=== PATIENT | male | born 1960 | race Caucasian/White ===

== ENCOUNTER 2016-12-06 20:03 | Emergency (ER) | payer OTHER ==
[2016-12-06] MEDS ORDERED: ASPIRIN 81 MG CHEW TABLET As Ordered ONE (20:22)
[2016-12-06 20:44] LABS: INR 0.92
[2016-12-06 20:59] LABS: MEAN CORPUSCULAR HEMOGLOBIN 33.3 pg (27.0-33.0); MEAN CORPUSCULAR HGB CONC 34.6 g/dl (32.0-36.5); MEAN CORPUSCULAR VOLUME 96.4 fl (80.0-96.0); RED CELL DISTRIBUTION WIDTH 12.1 % (11.5-14.5); WHITE BLOOD COUNT 7.4 K/mm3 (4.0-10.0)
[2016-12-06 22:39] LABS: ANION GAP 4 MEQ/L (8-16); BLOOD UREA NITROGEN 9 MG/DL (7-18); CALCIUM LEVEL 8.3 MG/DL (8.5-10.1); CARBON DIOXIDE LEVEL 34 MEQ/L (21-32); CHLORIDE LEVEL 104 MEQ/L (98-107); CREATININE FOR GFR 1.12 MG/DL (0.70-1.30); GLOMERULAR FILTRATION RATE > 60.0 (>56); GLUCOSE, FASTING 105 MG/DL (70-105); SODIUM LEVEL 142 MEQ/L (136-145)
--- NOTE | 2016-12-07 01:07 | REP ---
Clinical: Chest pain . Comparison: 02/10/2016 . Findings: The mediastinum and cardiac silhouette are stable and within normal limits for portable technique. The lung pickett are clear without acute consolidation, effusion, or pneumothorax. Skeletal structures are intact. Impression: Normal portable chest x-ray Signed by Jhonathan Fairchild MD 12/07/2016 12:58 A
--- NOTE | 2016-12-07 03:48 | EDDOCDS ---
Nurse's Notes [facility] Name: Blaise Velasquez Age: 56 yrs Sex: Male : 1960 Arrival Date: 12/06/2016 Time: 20:03 Bed Family 1 Private MD: Tiffanie Robb Diagnosis: Chest pain, unspecified;Patient's noncompliance with medical treatment and regimen Presentation: 12/06 20:05 Presenting complaint: EMS states: chest pain starting approx 19:30, acute onset. pt has mlc hx of 2 MA's. pt took 1 nitro at home with no relief. EMS gave 2x nitro with pain relief. ASA given by EMS. Aspirin was taken WHITE SOURER. Adult Sepsis Screening: The patient does not have new or worsening altered mentation. Patient's respiratory rate is less than 22. Systolic blood pressure is greater than 100. Patient has a qSOFA score of 0- Negative Sepsis Screen. Suicide/Homicide risk assessment- the patient denies having any suicidal and/or homicidal ideations and does not present with any other emotional, behavioral or mental health complaints. Status: Patient is not a student services director or dependent. Transition of care: patient was not received from another setting of care. Care prior to arrival: IV initiated. 20:05 Acuity: TOLU Level 2 mlc 20:05 Method Of Arrival: Ambulance mlc Triage Assessment: 20:31 General: Appears in no apparent distress, comfortable, slender, well developed, jp6 Behavior is anxious, appropriate for age, cooperative. Pain: Location: chest Pain currently is 1 out of 10 on a pain scale. Pt Declines HIV testing. The patient is triaged at the bedside. See Assessment in Nurses Notes section of ED record. Neurological: No deficits noted. Level of Consciousness is awake, alert, Oriented to person, place, time. EENT: No deficits noted. Cardiovascular: Capillary refill < 3 seconds is brisk Heart tones S1 S2 present Rhythm is sinus rhythm No ectopy. Chest pain is described as vague, quality is burning, is located in substernal area radiates jaw(s) episodes last > 5 minutes began 30 minutes prior to arrival. Respiratory: No deficits noted. Airway is patent Respiratory effort is even, unlabored, Respiratory pattern is regular, symmetrical, Breath sounds are clear bilaterally. GI: No deficits noted. : No deficits noted. Derm: Skin is dry, Skin is pale, Skin temperature is cool. Musculoskeletal: No deficits noted. Historical: - Allergies: PENICILLINS; - Home Meds: 1. albuterol sulfate 90 mcg/actuation Inhl aepb 1 puff every 4 hours 2. albuterol sulfate 2.5 mg /3 mL (0.083 %) Inhl nebu 3. aspirin 81 mg Oral tab 2 tabs once daily 4. atenolol 50 mg Oral tab 1 tab once daily 5. furosemide 40 mg Oral tab 1 tab once daily 6. nitroglycerin 0.4 mg SL subl 1 tab every 5 minutes 7. Plavix 75 mg Oral tab 1 tab once daily 8. Ranexa 500 mg oral Tb12 1 tab 2 times per day 9. lisinopril 2.5 mg Oral tab 1 tab once daily 10. omeprazole 40 mg Oral cpDR 1 cap once daily 11. Vitamin D3 5,000 unit oral tab 12. Onglyza 5 mg oral tab 1 tab once daily 13. metformin 1,000 mg Oral tr24 1 tab once daily 14. trazodone 100 mg Oral tab 1 tab as needed 15. Advair Diskus 250-50 mcg/dose Inhl dsdv 1 puff 2 times per day - PMHx: Asthma; CAD; COPD; GERD; Diabetes - NIDDM: controlled; Hypercholesterolemia; MA; - PSHx: Cardiac stents; - Social history: Smoking status: Patient uses tobacco products, current every day smoker. Patient/guardian denies using alcohol, street drugs, No barriers to communication noted, The patient speaks fluent Mongolian. - Family history: Not pertinent. - : The pt / caregiver states he / she is on anticoagulants: Plavix. Home medication list is obtained from the patient. - Exposure Risk Screening:: None identified. Screenin:35 Screening information is obtained from the patient. Fall risk: No risks identified. jp6 Assistance ADL's: requires no assistance with activities of daily living. Abuse/DV Screen: The patient / caregiver reports he/she is: not in a situation that causes fear, pain or injury. Nutritional screening: No deficits noted. Advance Directives: Currently, there is no health care proxy. There is no active DNR order. There is no living will. home support is adequate. Assessment: 20:35 General: see triage note for assessment. jp6 21:47 Reassessment: Patient appears in no apparent distress at this time. Patient states jp6 feeling better. Patient states symptoms have improved. General: Appears in no apparent distress, comfortable, Behavior is anxious, appropriate for age, cooperative. Pain: Denies pain. Neurological: No deficits noted. EENT: No deficits noted. Cardiovascular: Capillary refill < 3 seconds Heart tones S1 S2 present Rhythm is sinus rhythm No ectopy. Respiratory: No deficits noted. Airway is patent Respiratory effort is even, unlabored, Respiratory pattern is regular, symmetrical, Breath sounds are clear bilaterally. GI: No deficits noted. : No deficits noted. Derm: Skin is pink, warm & dry. Musculoskeletal: No deficits noted. 22:45 Reassessment: Patient appears in no apparent distress at this time. Patient states jp6 feeling better. Patient states symptoms have improved. Neurological: Level of Consciousness is awake, alert, Oriented to person, place, time. Cardiovascular: Capillary refill < 3 seconds Rhythm is sinus rhythm No ectopy. Respiratory: Airway is patent Respiratory effort is even, unlabored, Respiratory pattern is regular, symmetrical. Derm: Skin is pink, warm & dry. 23:45 Reassessment: Patient appears in no apparent distress at this time. denies c/o's chest jp6 pain.. 12/07 00:45 Reassessment: Patient appears in no apparent distress at this time. Pain: Denies pain. jp6 Cardiovascular: Capillary refill < 3 seconds Rhythm is sinus rhythm No ectopy. Respiratory: Airway is patent Respiratory effort is even, unlabored, Respiratory pattern is regular, symmetrical. Derm: Skin is pink, warm & dry. 01:35 Reassessment: Patient appears in no apparent distress at this time. pt is waiting on jp6 repeat ekg and cardiac enzymes at 0230.. 02:35 Reassessment: Patient appears in no apparent distress at this time. Patient states jp6 feeling better. Pain: Denies pain. Neurological: Level of Consciousness is awake, alert, Oriented to person, place, time. Cardiovascular: Rhythm is sinus rhythm No ectopy. 03:30 Reassessment: Patient appears in no apparent distress at this time. Patient states jp6 feeling better. General: Appears in no apparent distress, comfortable, Behavior is appropriate for age, cooperative. Pain: Denies pain. Neurological: No deficits noted. Level of Consciousness is awake, alert, Oriented to person, place, time. EENT: No deficits noted. Cardiovascular: Rhythm is sinus rhythm No ectopy. Respiratory: Airway is patent Respiratory effort is even, unlabored, Respiratory pattern is regular, symmetrical. GI: No deficits noted. : No deficits noted. Derm: Skin is pink, warm & dry. Musculoskeletal: No deficits noted. Vital Signs: 12/06 20:09 BP 117 / 78; Pulse 87; Resp 18; Temp 98.2(TE); Pulse Ox 95% on R/A; Weight 81.65 kg ashok (R); Height 5 ft. 5 in. (165.10 cm) (R); Pain 2/10; 20:53 BP 119 / 81 (auto/); jp6 20:54 Pulse 62 MON; Pulse Ox 97% ; jp6 21:08 BP 113 / 80 (auto/); jp6 21:09 Pulse 60 MON; Pulse Ox 96% ; jp6 21:23 BP 112 / 79 (auto/); jp6 21:24 Pulse 60 MON; Pulse Ox 96% ; jp6 21:38 BP 108 / 73 (auto/); jp6 21:39 Pulse 60 MON; Pulse Ox 97% ; jp6 21:53 BP 109 / 81 (auto/); jp6 21:54 Pulse 62 MON; Pulse Ox 98% ; jp6 22:00 Pulse 66 MON; Pulse Ox 95% ; jp6 23:00 BP 110 / 66; Pulse 60; Resp 18; Pulse Ox 96% on R/A; Pain 0/10; jp6 12/07 00:00 BP 112 / 65; Pulse 66; Resp 16; Pulse Ox 95% on R/A; jp6 01:00 BP 113 / 78; Pulse 64; Resp 16; Pulse Ox 95% on R/A; Pain 0/10; jp6 02:00 BP 110 / 58; Pulse 60; Resp 16; Pain 0/10; jp6 03:28 BP 116 / 65; Pulse 51; Resp 18; Temp 97.9(TE); Pulse Ox 96% on R/A; Pain 1/10; ashok 12/06 20:09 Body Mass Index 29.95 (81.65 kg, 165.10 cm) ashok Vitals: 12/06 20:31 Log In Time N/A - ambulance arrival. jp6 ED Course: 20:04 Patient visited by Maddy Pavon, Call Center Consultant. ml3 20:04 Tiffanie Robb is Private Physician. ml3 20:04 Collin Amaya DO is Attending Physician. cs11 20:04 Patient visited by Collin Amaya DO. cs11 20:04 Patient moved to Waiting ml3 20:04 Patient moved to 4 ml3 20:06 Triage Initiated mlc 20:10 Patient visited by Amita Guerrero PCA. ashok 20:10 Pt greeted and oriented to ED. Patient advised of names of staff involved in care, ashok location of call felix, wait times and NPO status. Patient has correct armband on for positive identification. Placed in gown. Bed in low position. Call light in reach. Side rails up X2. final rail cutter on. Pulse ox on. NIBP on. 20:16 Patient visited by Amita Guerrero PCA. ashok 20:16 EKG done. (by ED staff). Reviewed by Collin Amaya DO. ashok 20:23 Desirae Ramírez,RN is Primary Nurse. jp6 20:35 The patient / caregiver is instructed regarding the plan of care and ED course. jp6 20:35 Maintain field IV. Dressing intact. Good blood return noted. Site clean & dry. Gauge & jp6 site: 18 gauge left ac. O2 via nasal cannula \T\ 2L/min. 20:36 Patient moved to Radiology chuy 20:43 Patient moved to 4 chuy 21:14 Patient name changed from Blaise\S\W\S\Eva\S\ to Blaise\S\Epifanio\S\Eva. EDMS 21:16 Patient visited by Amita Guerrero PCA. ashok 21:16 [facility] Payment Agreement was scanned into [employer] and attached to record. gb 22:00 No procedures done that require assistance. jp6 22:17 Patient visited by Amita Guerrero PCA. ashok 22:43 Patient moved to OBSERVATION cs11 12/07 00:23 Diet: Patient given regular meal. mdr 01:00 Discontinued lock intact, bleeding controlled, pressure dressing applied, No jp6 redness/swelling at site. 01:19 Chest, 1 View Returned. EDMS 02:37 Patient visited by Amita Guerrero PCA. ashok 02:37 CARDIAC MARKER PANEL Sent. ashok 02:37 EKG done. (by ED staff). Reviewed by Collin Amaya DO. ashok 03:28 Patient visited by Amita Guerrero PCA. dre 03:40 Patient moved to Family 1 nov Administered Medications: 12/06 20:33 Not Given (given by EMS ): Aspirin 324 mg PO once dsf Order Results: Lab Order: CBC; SPEC'M 12/06/16 20:20 Test: WHITE BLOOD COUNT; Value: 7.4; Range: 4.0-10.0; Units: K/mm3; Status: F Test: RED BLOOD COUNT; Value: 4.54; Range: 4.30-6.10; Units: M/mm3; Status: F Test: HEMOGLOBIN; Value: 15.1; Range: 14.0-18.0; Units: g/dl; Status: F Test: HEMATOCRIT; Value: 43.8; Range: 42.0-52.0; Units: %; Status: F Test: MEAN CORPUSCULAR VOLUME; Value: 96.4; Range: 80.0-96.0; Abnormal: Above high normal; Units: fl; Status: F Test: MEAN CORPUSCULAR HEMOGLOBIN; Value: 33.3; Range: 27.0-33.0; Abnormal: Above high normal; Units: pg; Status: F Test: MEAN CORPUSCULAR HGB CONC; Value: 34.6; Range: 32.0-36.5; Units: g/dl; Status: F Test: RED CELL DISTRIBUTION WIDTH; Value: 12.1; Range: 11.5-14.5; Units: %; Status: F Test: PLATELET COUNT, AUTOMATED; Value: 268; Range: 150-450; Units: k/mm3; Status: F Lab Order: MED Profile; SPEC'M 12/06/16 22:07 Test: GLUCOSE, FASTING; Value: 105; Range: 70-105; Units: MG/DL; Status: F Test: BLOOD UREA NITROGEN; Value: 9; Range: 7-18; Units: MG/DL; Status: F Test: CREATININE FOR GFR; Value: 1.12; Range: 0.70-1.30; Units: MG/DL; Status: F Test: GLOMERULAR FILTRATION RATE; Value: > 60.0; Range: >56; Status: F Test: SODIUM LEVEL; Value: 142; Range: 136-145; Units: MEQ/L; Status: F Test: POTASSIUM SERUM; Value: 4.0; Range: 3.5-5.1; Units: MEQ/L; Status: F Test: CHLORIDE LEVEL; Value: 104; Range: 98-107; Units: MEQ/L; Status: F Test: CARBON DIOXIDE LEVEL; Value: 34; Range: 21-32; Abnormal: Above high normal; Units: MEQ/L; Status: F Test: ANION GAP; Value: 4; Range: 8-16; Abnormal: Below low normal; Units: MEQ/L; Status: F Test: CALCIUM LEVEL; Value: 8.3; Range: 8.5-10.1; Abnormal: Below low normal; Units: MG/DL; Status: F Test Note: ; Units are mL/min/1.73 m2 Chronic Kidney Disease Staging per NKF: Stage I & II GFR >=60 Normal to Mildly Decreased Stage III GFR 30-59 Moderately Decreased Stage IV GFR 15-29 Severely Decreased Stage V GFR <15 Very Little GFR Left ESRD GFR <15 on UROLOGY PHYSICIAN ASSISTANT Lab Order: Pt & Aptt; SPEC'M 12/06/16 20:20 Test: PROTHROMBIN TIME; Value: 12.5; Range: 12.3-14.5; Units: SECONDS; Status: F Test: INR; Value: 0.92; Status: F Test: PARTIAL THROMBOPLASTIN TIME; Value: 25.2; Range: 26.6-37.1; Abnormal: Below low normal; Units: SECONDS; Status: F Test Note: ; THERAPUTIC HUMAN INR VALUES INDICATIONS NORMAL RANGES PROPHYLAXIS/TREATMENT OF: VENOUS THROMBOSIS 2.0-3.0 PULMONARY EMBOLISM 2.0-3.0 PREVENTION OF SYSTEMIC EMBOLISM FROM: TISSUE HEART VALVES 2.0-3.0 ACUTE MYOCARDIAL INFARCTION 2.0-3.0 VALVULAR HEART DISEASE 2.0-3.0 ATRIAL FIBRILLATION 2.0-3.0 MECHANICAL VALVES(HIGH RISK) 2.5-3.5 RECURRENT MYOCARDIAL INFARCTION 2.5-3.5 Lab Order: Cardiac Marker Panel; SPEC'M 12/06/16 22:07 Test: CPK CREATINE PHOSPHOKINASE; Value: 96; Range: 39-308; Units: U/L; Status: F Test: CK-MB VALUE MASS; Value: 1.1; Range: 0.0-3.6; Units: NG/ML; Status: F Test: MB/CK RELATIVE INDEX; Value: 1.14; Range: < OR =4; Status: F Test: TROPONIN I; Value: < 0.02; Range: < 0.10; Units: NG/ML; Status: F Test Note: ; DIAGNOSIS CRITERIA MMB ng/ml Relative Index (RI) NON-AMI < or = 5 N/A PHAN ZONE > 5 < or = 4 AMI > 5 > 4 Lab Order: CARDIAC MARKER PANEL; SPEC'M 12/07/16 02:42 Test: CPK CREATINE PHOSPHOKINASE; Value: 75; Range: 39-308; Units: U/L; Status: F Test: CK-MB VALUE MASS; Value: 1.0; Range: 0.0-3.6; Units: NG/ML; Status: F Test: MB/CK RELATIVE INDEX; Value: 1.33; Range: < OR =4; Status: F Test: TROPONIN I; Value: < 0.02; Range: < 0.10; Units: NG/ML; Status: F Test Note: ; DIAGNOSIS CRITERIA MMB ng/ml Relative Index (RI) NON-AMI < or = 5 N/A PHAN ZONE > 5 < or = 4 AMI > 5 > 4 Radiology Order: Chest, 1 View Test: Chest, 1 View REASON FOR EXAMINATION: Chest Pain; Clinical: Chest pain .; ; Comparison: 02/10/2016 .; ; Findings:; The mediastinum and cardiac silhouette are stable and within normal limits for; portable technique. The lung pickett are clear without acute consolidation,; effusion, or pneumothorax. Skeletal structures are intact.; ; Impression:; Normal portable chest x-ray; ; ; Signed by; Jhonathan Fairchild MD 12/07/2016 12:58 A; Outcome: 12/07 01:00 Discharge Assessment: Patient awake, alert and oriented x 3. No cognitive and/or jp6 functional deficits noted. Patient verbalized understanding of disposition instructions. patient administered narcotics - no. The following High Risk Discharge criteria are identified: None. Discharged to home ambulatory, with significant other. Condition: improved. Discharge instructions given to patient, Instructed on discharge instructions, follow up and referral plans. medication usage, Demonstrated understanding of instructions, medications, Pt was receptive of discharge instructions/ teaching. Prescriptions given X 1. No special radiology studies were completed. Property sent home with patient. 03:24 Discharge ordered by Provider. cs11 03:47 Patient left the ED. jp6 Signatures: Dispatcher [employer] EDMS Radhika Moise, RN RN Tony Bullard Gloria, Renaldo Reg raymon Librado, Maddy, Call Center Consultant Unit ml3 Cesar, Amita, FLOORMAN FLOORMAN ashok Collin Amaya, DO cs11 Yuliana Campos,RN RN Yruy Landry, FLOORMAN FLOORMAN Desirae Dorsey,Lisa Schwab RN, RN MTDD
--- NOTE | 2016-12-07 03:48 | EDDOCDS ---
Physician Documentation [facility] Name: Blaise Velasquez Age: 56 yrs Sex: Male : 1960 Arrival Date: 12/06/2016 Time: 20:03 Bed Family 1 Private MD: Tiffanie Robb Disposition: 12/07/16 03:24 Discharged to Home/Self Care. Impression: Chest pain, unspecified, Patient's noncompliance with medical treatment and regimen. - Condition is Stable. - Prescriptions for Aspirin 81 mg - take 1 tablet by ORAL route once daily; 90 tablet. - Medication Reconciliation, Local Pharmacy Hours form. - Follow up: Private Physician; When: Call to arrange an appointment; Reason: Recheck today's complaints. - Problem is an ongoing problem. - Symptoms have improved. - Notes: follow with your field instructor Historical: - Allergies: PENICILLINS; - Home Meds: 1. albuterol sulfate 90 mcg/actuation Inhl aepb 1 puff every 4 hours 2. albuterol sulfate 2.5 mg /3 mL (0.083 %) Inhl nebu 3. aspirin 81 mg Oral tab 2 tabs once daily 4. atenolol 50 mg Oral tab 1 tab once daily 5. furosemide 40 mg Oral tab 1 tab once daily 6. nitroglycerin 0.4 mg SL subl 1 tab every 5 minutes 7. Plavix 75 mg Oral tab 1 tab once daily 8. Ranexa 500 mg oral Tb12 1 tab 2 times per day 9. lisinopril 2.5 mg Oral tab 1 tab once daily 10. omeprazole 40 mg Oral cpDR 1 cap once daily 11. Vitamin D3 5,000 unit oral tab 12. Onglyza 5 mg oral tab 1 tab once daily 13. metformin 1,000 mg Oral tr24 1 tab once daily 14. trazodone 100 mg Oral tab 1 tab as needed 15. Advair Diskus 250-50 mcg/dose Inhl dsdv 1 puff 2 times per day - PMHx: Asthma; CAD; COPD; GERD; Diabetes - NIDDM: controlled; Hypercholesterolemia; OR; - PSHx: Cardiac stents; - Social history: Smoking status: Patient uses tobacco products, current every day smoker. Patient/guardian denies using alcohol, street drugs, No barriers to communication noted, The patient speaks fluent Peruvian. - Family history: Not pertinent. - : The pt / caregiver states he / she is on anticoagulants: Plavix. Home medication list is obtained from the patient. - Exposure Risk Screening:: None identified. Vital Signs: 12/06 20:09 BP 117 / 78; Pulse 87; Resp 18; Temp 98.2(TE); Pulse Ox 95% on R/A; Weight 81.65 kg / ashok 180.01 lbs (R); Height 5 ft. 5 in. (165.10 cm) (R); Pain 2/10; 20:53 BP 119 / 81 (auto/); jp6 20:54 Pulse 62 MON; Pulse Ox 97% ; jp6 21:08 BP 113 / 80 (auto/); jp6 21:09 Pulse 60 MON; Pulse Ox 96% ; jp6 21:23 BP 112 / 79 (auto/); jp6 21:24 Pulse 60 MON; Pulse Ox 96% ; jp6 21:38 BP 108 / 73 (auto/); jp6 21:39 Pulse 60 MON; Pulse Ox 97% ; jp6 21:53 BP 109 / 81 (auto/); jp6 21:54 Pulse 62 MON; Pulse Ox 98% ; jp6 22:00 Pulse 66 MON; Pulse Ox 95% ; jp6 23:00 BP 110 / 66; Pulse 60; Resp 18; Pulse Ox 96% on R/A; Pain 0/10; jp6 12/07 00:00 BP 112 / 65; Pulse 66; Resp 16; Pulse Ox 95% on R/A; jp6 01:00 BP 113 / 78; Pulse 64; Resp 16; Pulse Ox 95% on R/A; Pain 0/10; jp6 02:00 BP 110 / 58; Pulse 60; Resp 16; Pain 0/10; jp6 03:28 BP 116 / 65; Pulse 51; Resp 18; Temp 97.9(TE); Pulse Ox 96% on R/A; Pain 1/10; ashok 12/06 20:09 Body Mass Index 29.95 (81.65 kg, 165.10 cm) ashok MDM: 12/06 20:11 ECG WITH READING ER PHYS+CARDIAG ordered. EDMS 20:27 Aspirin 324 mg PO once ordered. cs11 20:29 CBC Ordered. EDMS 20:29 MED Profile Ordered. EDMS 20:29 Pt & Aptt Ordered. EDMS 20:29 Cardiac Marker Panel Ordered. EDMS 20:30 Chest, 1 View Ordered. EDMS 20:59 Financial registration complete. gb 21:16 [facility] Payment Agreement was scanned into [employer] and attached to record. gb 22:42 CBC Reviewed. cs11 22:42 MED Profile Reviewed. cs11 22:42 Pt & Aptt Reviewed. cs11 22:42 Cardiac Marker Panel Reviewed. cs11 22:43 Misc Employee Services Manager Order ordered. cs11 22:53 Misc Employee Services Manager Order complete. ml3 22:53 CARDIAC MARKER PANEL Ordered. EDMS 22:54 ECG WITH READING ER PHYS ordered. EDMS 12/07 03:20 CARDIAC MARKER PANEL Reviewed. cs11 03:20 Chest, 1 View Reviewed. cs11 Administered Medications: 12/06 20:33 Not Given (given by EMS ): Aspirin 324 mg PO once dsf Signatures: Dispatcher [employer] EDMS Leonie Rodriguez, Reg Reg gb Maddy Pavon, Page Technician Unit ml3 Collin Amaya, DO cs11 Desirae Ramírez,RN RN jp6 Lisa Wellington RN dsf The chart was reviewed and I authenticate all verbal orders and agree with the evaluation and treatment provided.Attachments: 21:16 [facility] Payment Agreement gb MTDD
--- NOTE | 2016-12-07 07:45 | ECGEPIP ---
Stationary ECG Study [facility] - ED Test Date: 2016-12-06 Pat Name: ROBERT NOVOA Department: Room: - Gender: M Field Director: JosephB: 1960 Requested By: MARIA DE JESUS MENDOZA Order Number: [id number] Reading MD: Chas Kramer Measurements Intervals [place] Rate: 63 P: 7 VA: 139 QRS: 6 QRSD: 122 T: 24 QT: 399 QTc: 411 Interpretive Statements SINUS RHYTHM MODERATE INTRAVENTRICULAR CONDUCTION DELAY Electronically Signed On 12-07-2016 7:44:48 EST by Chas Kramer
--- NOTE | 2016-12-07 07:50 | ECGEPIP ---
Stationary ECG Study [facility] - ED Test Date: 2016-12-07 Pat Name: ROBERT NOVOA Department: Room: - Gender: M Quality Liaison: JosephB: 1960 Requested By: MARIA DE JESUS MENDOZA Order Number: [id number] Reading MD: Chas Kramer Measurements Intervals [place] Rate: 61 P: 11 HI: 139 QRS: 37 QRSD: 134 T: 35 QT: 404 QTc: 409 Interpretive Statements SINUS RHYTHM INTRAVENTRICULAR CONDUCTION DELAY PRWP Electronically Signed On 12-07-2016 7:49:59 EST by Chas Kramer
--- NOTE | 2016-12-09 04:48 | EDDOCDS ---
Physician Documentation [facility] Name: Blaise Velasquez Age: 56 yrs Sex: Male : 1960 Arrival Date: 12/06/2016 Time: 20:03 Bed Family 1 Private MD: Tiffanie Robb Disposition: 12/07/16 03:24 Discharged to Home/Self Care. Impression: Chest pain, unspecified, Patient's noncompliance with medical treatment and regimen. - Condition is Stable. - Prescriptions for Aspirin 81 mg - take 1 tablet by ORAL route once daily; 90 tablet. - Medication Reconciliation, Local Pharmacy Hours form. - Follow up: Private Physician; When: Call to arrange an appointment; Reason: Recheck today's complaints. - Problem is an ongoing problem. - Symptoms have improved. 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 albuterol sulfate 90 mcg/actuation Inhl aepb 1 puff every 4 hours 2. albuterol sulfate 2.5 mg /3 mL (0.083 %) Inhl nebu 3. aspirin 81 mg Oral tab 2 tabs once daily 4. atenolol 50 mg Oral tab 1 tab once daily 5. furosemide 40 mg Oral tab 1 tab once daily 6. nitroglycerin 0.4 mg SL subl 1 tab every 5 minutes 7. Plavix 75 mg Oral tab 1 tab once daily 8. Ranexa 500 mg oral Tb12 1 tab 2 times per day 9. lisinopril 2.5 mg Oral tab 1 tab once daily 10. omeprazole 40 mg Oral cpDR 1 cap once daily 11. Vitamin D3 5,000 unit oral tab 12. Onglyza 5 mg oral tab 1 tab once daily 13. metformin 1,000 mg Oral tr24 1 tab once daily 14. trazodone 100 mg Oral tab 1 tab as needed 15. Advair Diskus 250-50 mcg/dose Inhl dsdv 1 puff 2 times per day - PMHx: Asthma; CAD; COPD; GERD; Diabetes - NIDDM: controlled; Hypercholesterolemia; [place]; - PSHx: Cardiac stents; - Social history: Smoking status: Patient uses tobacco products, current every day smoker. Patient/guardian denies using alcohol, street drugs, No barriers to communication noted, The patient speaks fluent Georgian. - Family history: Not pertinent. - : The pt / caregiver states he / she is on anticoagulants: Plavix. Home medication list is obtained from the patient. - Exposure Risk Screening:: None identified. Vital Signs: 12/06 20:09 BP 117 / 78; Pulse 87; Resp 18; Temp 98.2(TE); Pulse Ox 95% on R/A; Weight 81.65 kg / ashok 180.01 lbs (R); Height 5 ft. 5 in. (165.10 cm) (R); Pain 2/10; 20:53 BP 119 / 81 (auto/); jp6 20:54 Pulse 62 MON; Pulse Ox 97% ; jp6 21:08 BP 113 / 80 (auto/); jp6 21:09 Pulse 60 MON; Pulse Ox 96% ; jp6 21:23 BP 112 / 79 (auto/); jp6 21:24 Pulse 60 MON; Pulse Ox 96% ; jp6 21:38 BP 108 / 73 (auto/); jp6 21:39 Pulse 60 MON; Pulse Ox 97% ; jp6 21:53 BP 109 / 81 (auto/); jp6 21:54 Pulse 62 MON; Pulse Ox 98% ; jp6 22:00 Pulse 66 MON; Pulse Ox 95% ; jp6 23:00 BP 110 / 66; Pulse 60; Resp 18; Pulse Ox 96% on R/A; Pain 0/10; jp6 12/07 00:00 BP 112 / 65; Pulse 66; Resp 16; Pulse Ox 95% on R/A; jp6 01:00 BP 113 / 78; Pulse 64; Resp 16; Pulse Ox 95% on R/A; Pain 0/10; jp6 02:00 BP 110 / 58; Pulse 60; Resp 16; Pain 0/10; jp6 03:28 BP 116 / 65; Pulse 51; Resp 18; Temp 97.9(TE); Pulse Ox 96% on R/A; Pain 1/10; ashok 12/06 20:09 Body Mass Index 29.95 (81.65 kg, 165.10 cm) ashok MDM: 12/06 20:11 ECG WITH READING ER PHYS+CARDIAG ordered. EDMS 20:27 Aspirin 324 mg PO once ordered. cs11 20:29 CBC Ordered. EDMS 20:29 MED Profile Ordered. EDMS 20:29 Pt & Aptt Ordered. EDMS 20:29 Cardiac Marker Panel Ordered. EDMS 20:30 Chest, 1 View Ordered. EDMS 20:59 Financial registration complete. gb 21:16 [facility] [place] was [place] into [employer] and attached to record. gb 22:42 CBC Reviewed. cs11 22:42 MED Profile Reviewed. cs11 22:42 Pt & Aptt Reviewed. cs11 22:42 Cardiac Marker Panel Reviewed. cs11 22:43 Misc Knitted Goods Shaper Order ordered. cs11 22:53 Misc Knitted Goods Shaper Order complete. ml3 22:53 CARDIAC MARKER PANEL Ordered. EDMS 22:54 ECG WITH READING ER PHYS ordered. EDMS 12/07 03:20 CARDIAC MARKER PANEL Reviewed. cs11 03:20 Chest, 1 View Reviewed. cs11 12:09 T-Sheet-- Draft Copy was scanned into [employer] and attached to record. gb 12:10 ECG/EKG was scanned into [employer] and attached to record. gb 12:10 Trend VS was scanned into [employer] and attached to record. gb Administered Medications: 12/06 20:33 Not Given (given by EMS ): Aspirin 324 mg PO once dsf Signatures: Dispatcher [employer] EDMS Leonie Rodriguez, Reg Reg gb Librado, Jose FranciscoSabiha, Topographical Drafter Unit ml3 Collin Amaya, DO cs11 Desirae Ramírez,RN RN jp6 Lisa Wellington RN dsf The chart was reviewed and I authenticate all verbal orders and agree with the evaluation and treatment provided.Attachments: 21:16 [facility] Payment Agreement gb 12/07 12:09 T-Sheet-- Draft Copy gb 12:10 ECG/EKG gb Chart Complete MTDD
--- NOTE | 2016-12-09 04:48 | EDDOCDS ---
Physician Documentation [facility] Name: Blaise Velasquez Age: 56 yrs Sex: Male : 1960 Arrival Date: 12/06/2016 Time: 20:03 Bed Family 1 Private MD: Tiffanie Robb Disposition: 12/07/16 03:24 Discharged to Home/Self Care. Impression: Chest pain, unspecified, Patient's noncompliance with medical treatment and regimen. - Condition is Stable. - Prescriptions for Aspirin 81 mg - take 1 tablet by ORAL route once daily; 90 tablet. - Medication Reconciliation, Local Pharmacy Hours form. - Follow up: Private Physician; When: Call to arrange an appointment; Reason: Recheck today's complaints. - Problem is an ongoing problem. - Symptoms have improved. 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 albuterol sulfate 90 mcg/actuation Inhl aepb 1 puff every 4 hours 2. albuterol sulfate 2.5 mg /3 mL (0.083 %) Inhl nebu 3. aspirin 81 mg Oral tab 2 tabs once daily 4. atenolol 50 mg Oral tab 1 tab once daily 5. furosemide 40 mg Oral tab 1 tab once daily 6. nitroglycerin 0.4 mg SL subl 1 tab every 5 minutes 7. Plavix 75 mg Oral tab 1 tab once daily 8. Ranexa 500 mg oral Tb12 1 tab 2 times per day 9. lisinopril 2.5 mg Oral tab 1 tab once daily 10. omeprazole 40 mg Oral cpDR 1 cap once daily 11. Vitamin D3 5,000 unit oral tab 12. Onglyza 5 mg oral tab 1 tab once daily 13. metformin 1,000 mg Oral tr24 1 tab once daily 14. trazodone 100 mg Oral tab 1 tab as needed 15. Advair Diskus 250-50 mcg/dose Inhl dsdv 1 puff 2 times per day - PMHx: Asthma; CAD; COPD; GERD; Diabetes - NIDDM: controlled; Hypercholesterolemia; [place]; - PSHx: Cardiac stents; - Social history: Smoking status: Patient uses tobacco products, current every day smoker. Patient/guardian denies using alcohol, street drugs, No barriers to communication noted, The patient speaks fluent Moldovan. - Family history: Not pertinent. - : The pt / caregiver states he / she is on anticoagulants: Plavix. Home medication list is obtained from the patient. - Exposure Risk Screening:: None identified. Vital Signs: 12/06 20:09 BP 117 / 78; Pulse 87; Resp 18; Temp 98.2(TE); Pulse Ox 95% on R/A; Weight 81.65 kg / ashok 180.01 lbs (R); Height 5 ft. 5 in. (165.10 cm) (R); Pain 2/10; 20:53 BP 119 / 81 (auto/); jp6 20:54 Pulse 62 MON; Pulse Ox 97% ; jp6 21:08 BP 113 / 80 (auto/); jp6 21:09 Pulse 60 MON; Pulse Ox 96% ; jp6 21:23 BP 112 / 79 (auto/); jp6 21:24 Pulse 60 MON; Pulse Ox 96% ; jp6 21:38 BP 108 / 73 (auto/); jp6 21:39 Pulse 60 MON; Pulse Ox 97% ; jp6 21:53 BP 109 / 81 (auto/); jp6 21:54 Pulse 62 MON; Pulse Ox 98% ; jp6 22:00 Pulse 66 MON; Pulse Ox 95% ; jp6 23:00 BP 110 / 66; Pulse 60; Resp 18; Pulse Ox 96% on R/A; Pain 0/10; jp6 12/07 00:00 BP 112 / 65; Pulse 66; Resp 16; Pulse Ox 95% on R/A; jp6 01:00 BP 113 / 78; Pulse 64; Resp 16; Pulse Ox 95% on R/A; Pain 0/10; jp6 02:00 BP 110 / 58; Pulse 60; Resp 16; Pain 0/10; jp6 03:28 BP 116 / 65; Pulse 51; Resp 18; Temp 97.9(TE); Pulse Ox 96% on R/A; Pain 1/10; ashok 12/06 20:09 Body Mass Index 29.95 (81.65 kg, 165.10 cm) ashok MDM: 12/06 20:11 ECG WITH READING ER PHYS+CARDIAG ordered. EDMS 20:27 Aspirin 324 mg PO once ordered. cs11 20:29 CBC Ordered. EDMS 20:29 MED Profile Ordered. EDMS 20:29 Pt & Aptt Ordered. EDMS 20:29 Cardiac Marker Panel Ordered. EDMS 20:30 Chest, 1 View Ordered. EDMS 20:59 Financial registration complete. gb 21:16 [facility] [place] was scanned into [employer] and attached to record. gb 22:42 CBC Reviewed. cs11 22:42 MED Profile Reviewed. cs11 22:42 Pt & Aptt Reviewed. cs11 22:42 Cardiac Marker Panel Reviewed. cs11 22:43 Misc Brushing Machine Operator Order ordered. cs11 22:53 Misc Brushing Machine Operator Order complete. ml3 22:53 CARDIAC MARKER PANEL Ordered. EDMS 22:54 ECG WITH READING ER PHYS ordered. EDMS 12/07 03:20 CARDIAC MARKER PANEL Reviewed. cs11 03:20 Chest, 1 View Reviewed. cs11 12:09 T-Sheet-- Draft Copy was scanned into [employer] and attached to record. gb 12:10 ECG/EKG was scanned into [employer] and attached to record. gb 12:10 Trend VS was scanned into [employer] and attached to record. gb Administered Medications: 12/06 20:33 Not Given (given by EMS ): Aspirin 324 mg PO once dsf Signatures: Dispatcher [employer] EDMS Leonie Rodriguez, Reg Reg gb Librado, Jose FranciscoSabiha, Cocoa Bean Roaster Helper Unit ml3 Collin Amaya, DO cs11 Desirae Ramírez,RN RN jp6 Lisa Wellington RN dsf The chart was reviewed and I authenticate all verbal orders and agree with the evaluation and treatment provided.Attachments: 21:16 [facility] Payment Agreement gb 12/07 12:09 T-Sheet-- Draft Copy gb 12:10 ECG/EKG gb Chart Complete MTDD
--- NOTE | 2016-12-09 04:49 | EDDOCDS ---
Nurse's Notes [facility] Name: Robert Novoa Age: 56 yrs Sex: Male : 1960 Arrival Date: 12/06/2016 Time: 20:03 Bed Family 1 Private MD: Tiffanie Robb Diagnosis: Chest pain, unspecified;Patient's noncompliance with medical treatment and regimen Presentation: 12/06 20:05 Presenting complaint: EMS states: chest pain starting approx 19:30, acute onset. pt has mlc hx of 2 LA's. pt took 1 nitro at home with no relief. EMS gave 2x nitro with pain relief. ASA given by EMS. 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 Adult Sepsis Screening: The patient does not have new or worsening altered mentation. Patient's respiratory rate is less than 22. Systolic blood pressure is greater than 100. Patient has a qSOFA score of 0- Negative Sepsis Screen. Suicide/Homicide risk assessment- the patient denies having any suicidal and/or homicidal ideations and does not present with any other emotional, behavioral or mental health complaints. Status: Patient is not a service employee or dependent. Transition of care: patient was not received from another setting of care. Care prior to arrival: IV initiated. 20:05 Acuity: TOLU Level 2 mlc 20:05 Method Of Arrival: Ambulance mlc Triage Assessment: 20:31 General: Appears in no apparent distress, comfortable, slender, well developed, jp6 Behavior is anxious, appropriate for age, cooperative. Pain: Location: chest Pain currently is 1 out of 10 on a pain scale. Pt Declines HIV testing. The patient is triaged at the bedside. See Assessment in Nurses Notes section of ED record. Neurological: No deficits noted. Level of Consciousness is awake, alert, Oriented to person, place, time. EENT: No deficits noted. Cardiovascular: Capillary refill < 3 seconds is brisk Heart tones S1 S2 present Rhythm is sinus rhythm No ectopy. Chest pain is described as vague, quality is burning, is located in substernal area radiates jaw(s) episodes last > 5 minutes began 30 minutes prior to arrival. Respiratory: No deficits noted. Airway is patent Respiratory effort is even, unlabored, Respiratory pattern is regular, symmetrical, Breath sounds are clear bilaterally. GI: No deficits noted. : No deficits noted. Derm: Skin is dry, Skin is pale, Skin temperature is cool. Musculoskeletal: No deficits noted. Historical: - Allergies: PENICILLINS; - Home Meds: 1. albuterol sulfate 90 mcg/actuation Inhl aepb 1 puff every 4 hours 2. albuterol sulfate 2.5 mg /3 mL (0.083 %) Inhl nebu 3. aspirin 81 mg Oral tab 2 tabs once daily 4. atenolol 50 mg Oral tab 1 tab once daily 5. furosemide 40 mg Oral tab 1 tab once daily 6. nitroglycerin 0.4 mg SL subl 1 tab every 5 minutes 7. Plavix 75 mg Oral tab 1 tab once daily 8. Ranexa 500 mg oral Tb12 1 tab 2 times per day 9. lisinopril 2.5 mg Oral tab 1 tab once daily 10. omeprazole 40 mg Oral cpDR 1 cap once daily 11. Vitamin D3 5,000 unit oral tab 12. Onglyza 5 mg oral tab 1 tab once daily 13. metformin 1,000 mg Oral tr24 1 tab once daily 14. trazodone 100 mg Oral tab 1 tab as needed 15. Advair Diskus 250-50 mcg/dose Inhl dsdv 1 puff 2 times per day - PMHx: Asthma; CAD; COPD; GERD; Diabetes - NIDDM: controlled; Hypercholesterolemia; LA; - PSHx: Cardiac stents; - Social history: Smoking status: Patient uses tobacco products, current every day smoker. Patient/guardian denies using alcohol, street drugs, No barriers to communication noted, The patient speaks fluent Icelandic. - Family history: Not pertinent. - : The pt / caregiver states he / she is on anticoagulants: Plavix. Home medication list is obtained from the patient. - Exposure Risk Screening:: None identified. Screenin:35 Screening information is obtained from the patient. Fall risk: No risks identified. jp6 Assistance ADL's: requires no assistance with activities of daily living. Abuse/DV Screen: The patient / caregiver reports he/she is: not in a situation that causes fear, pain or injury. Nutritional screening: No deficits noted. Advance Directives: Currently, there is no health care proxy. There is no active DNR order. There is no living will. home support is adequate. Assessment: 20:35 General: see triage note for assessment. jp6 21:47 Reassessment: Patient appears in no apparent distress at this time. Patient states jp6 feeling better. Patient states symptoms have improved. General: Appears in no apparent distress, comfortable, Behavior is anxious, appropriate for age, cooperative. Pain: Denies pain. Neurological: No deficits noted. EENT: No deficits noted. Cardiovascular: Capillary refill < 3 seconds Heart tones S1 S2 present Rhythm is sinus rhythm No ectopy. Respiratory: No deficits noted. Airway is patent Respiratory effort is even, unlabored, Respiratory pattern is regular, symmetrical, Breath sounds are clear bilaterally. GI: No deficits noted. : No deficits noted. Derm: Skin is pink, warm & dry. Musculoskeletal: No deficits noted. 22:45 Reassessment: Patient appears in no apparent distress at this time. Patient states jp6 feeling better. Patient states symptoms have improved. Neurological: Level of Consciousness is awake, alert, Oriented to person, place, time. Cardiovascular: Capillary refill < 3 seconds Rhythm is sinus rhythm No ectopy. Respiratory: Airway is patent Respiratory effort is even, unlabored, Respiratory pattern is regular, symmetrical. Derm: Skin is pink, warm & dry. 23:45 Reassessment: Patient appears in no apparent distress at this time. denies c/o's chest jp6 pain.. 12/07 00:45 Reassessment: Patient appears in no apparent distress at this time. Pain: Denies pain. jp6 Cardiovascular: Capillary refill < 3 seconds Rhythm is sinus rhythm No ectopy. Respiratory: Airway is patent Respiratory effort is even, unlabored, Respiratory pattern is regular, symmetrical. Derm: Skin is pink, warm & dry. 01:35 Reassessment: Patient appears in no apparent distress at this time. pt is waiting on jp6 repeat ekg and cardiac enzymes at 0230.. 02:35 Reassessment: Patient appears in no apparent distress at this time. Patient states jp6 feeling better. Pain: Denies pain. Neurological: Level of Consciousness is awake, alert, Oriented to person, place, time. Cardiovascular: Rhythm is sinus rhythm No ectopy. 03:30 Reassessment: Patient appears in no apparent distress at this time. Patient states jp6 feeling better. General: Appears in no apparent distress, comfortable, Behavior is appropriate for age, cooperative. Pain: Denies pain. Neurological: No deficits noted. Level of Consciousness is awake, alert, Oriented to person, place, time. EENT: No deficits noted. Cardiovascular: Rhythm is sinus rhythm No ectopy. Respiratory: Airway is patent Respiratory effort is even, unlabored, Respiratory pattern is regular, symmetrical. GI: No deficits noted. : No deficits noted. Derm: Skin is pink, warm & dry. Musculoskeletal: No deficits noted. Vital Signs: 12/06 20:09 BP 117 / 78; Pulse 87; Resp 18; Temp 98.2(TE); Pulse Ox 95% on R/A; Weight 81.65 kg ashok (R); Height 5 ft. 5 in. (165.10 cm) (R); Pain 2/10; 20:53 BP 119 / 81 (auto/); jp6 20:54 Pulse 62 MON; Pulse Ox 97% ; jp6 21:08 BP 113 / 80 (auto/); jp6 21:09 Pulse 60 MON; Pulse Ox 96% ; jp6 21:23 BP 112 / 79 (auto/); jp6 21:24 Pulse 60 MON; Pulse Ox 96% ; jp6 21:38 BP 108 / 73 (auto/); jp6 21:39 Pulse 60 MON; Pulse Ox 97% ; jp6 21:53 BP 109 / 81 (auto/); jp6 21:54 Pulse 62 MON; Pulse Ox 98% ; jp6 22:00 Pulse 66 MON; Pulse Ox 95% ; jp6 23:00 BP 110 / 66; Pulse 60; Resp 18; Pulse Ox 96% on R/A; Pain 0/10; jp6 12/07 00:00 BP 112 / 65; Pulse 66; Resp 16; Pulse Ox 95% on R/A; jp6 01:00 BP 113 / 78; Pulse 64; Resp 16; Pulse Ox 95% on R/A; Pain 0/10; jp6 02:00 BP 110 / 58; Pulse 60; Resp 16; Pain 0/10; jp6 03:28 BP 116 / 65; Pulse 51; Resp 18; Temp 97.9(TE); Pulse Ox 96% on R/A; Pain 1/10; ashok 12/06 20:09 Body Mass Index 29.95 (81.65 kg, 165.10 cm) ashok Vitals: 12/06 20:31 Log In Time N/A - ambulance arrival. jp6 ED Course: 20:04 Patient visited by Maddy Pavon, Section Leader And Machine Setter. ml3 20:04 Tiffanie Robb is Private Physician. ml3 20:04 Maria De Jesus Mendoza DO is Attending Physician. cs11 20:04 Patient visited by Maria De Jesus Mendoza DO. cs11 20:04 Patient moved to Waiting ml3 20:04 Patient moved to 4 ml3 20:06 Triage Initiated mlc 20:10 Patient visited by Amita Guerrero PCA. ashok 20:10 Pt greeted and oriented to ED. Patient advised of names of staff involved in care, ashok location of call felix, wait times and NPO status. Patient has correct armband on for positive identification. Placed in gown. Bed in low position. Call light in reach. Side rails up X2. senior associate on. Pulse ox on. NIBP on. 20:16 Patient visited by Amita Guerrero PCA. ashok 20:16 EKG done. (by ED staff). Reviewed by Maria De Jesus Mendoza DO. ashok 20:23 Desirae Ramírez,RN is Primary Nurse. jp6 20:35 The patient / caregiver is instructed regarding the plan of care and ED course. jp6 20:35 Maintain field IV. Dressing intact. Good blood return noted. Site clean & dry. Gauge & jp6 site: 18 gauge left ac. O2 via nasal cannula \T\ 2L/min. 20:36 Patient moved to Radiology chuy 20:43 Patient moved to 4 chuy 21:14 Patient name changed from Robert\S\W\S\Eva\S\ to Robert\S\Epifanio\S\Eva. EDMS 21:16 Patient visited by Amita Guerrero PCA. ashok 21:16 [facility] Payment Agreement was scanned into [employer] and attached to record. gb 22:00 No procedures done that require assistance. jp6 22:17 Patient visited by Amita Guerrero PCA. ashok 22:43 Patient moved to OBSERVATION cs11 12/07 00:23 Diet: Patient given regular meal. mdr 01:00 Discontinued lock intact, bleeding controlled, pressure dressing applied, No jp6 redness/swelling at site. 01:19 Chest, 1 View Returned. EDMS 02:37 Patient visited by Amita Guerrero PCA. ashok 02:37 CARDIAC MARKER PANEL Sent. ashok 02:37 EKG done. (by ED staff). Reviewed by Maria De Jesus Mendoza DO. ashok 03:28 Patient visited by Amita Guerrero PCA. ashok 03:40 Patient moved to Family 1 nov 07:55 EKG-ADULT Returned. EDMS 07:55 ECG WITH READING ER PHYS Returned. EDMS 12:09 T-Sheet-- Draft Copy was scanned into [employer] and attached to record. gb 12:10 ECG/EKG was scanned into [employer] and attached to record. gb 12:10 Trend VS was scanned into [employer] and attached to record. gb Administered Medications: 12/06 20:33 Not Given (given by EMS ): Aspirin 324 mg PO once dsf Attachments: 12:10 Trend VS gb Order Results: Lab Order: CBC; SPEC'M 12/06/16 20:20 Test: WHITE BLOOD COUNT; Value: 7.4; Range: 4.0-10.0; Units: K/mm3; Status: F Test: RED BLOOD COUNT; Value: 4.54; Range: 4.30-6.10; Units: M/mm3; Status: F Test: HEMOGLOBIN; Value: 15.1; Range: 14.0-18.0; Units: g/dl; Status: F Test: HEMATOCRIT; Value: 43.8; Range: 42.0-52.0; Units: %; Status: F Test: MEAN CORPUSCULAR VOLUME; Value: 96.4; Range: 80.0-96.0; Abnormal: Above high normal; Units: fl; Status: F Test: MEAN CORPUSCULAR HEMOGLOBIN; Value: 33.3; Range: 27.0-33.0; Abnormal: Above high normal; Units: pg; Status: F Test: MEAN CORPUSCULAR HGB CONC; Value: 34.6; Range: 32.0-36.5; Units: g/dl; Status: F Test: RED CELL DISTRIBUTION WIDTH; Value: 12.1; Range: 11.5-14.5; Units: %; Status: F Test: PLATELET COUNT, AUTOMATED; Value: 268; Range: 150-450; Units: k/mm3; Status: F Lab Order: MED Profile; SPEC'M 12/06/16 22:07 Test: GLUCOSE, FASTING; Value: 105; Range: 70-105; Units: MG/DL; Status: F Test: BLOOD UREA NITROGEN; Value: 9; Range: 7-18; Units: MG/DL; Status: F Test: CREATININE FOR GFR; Value: 1.12; Range: 0.70-1.30; Units: MG/DL; Status: F Test: GLOMERULAR FILTRATION RATE; Value: > 60.0; Range: >56; Status: F Test: SODIUM LEVEL; Value: 142; Range: 136-145; Units: MEQ/L; Status: F Test: POTASSIUM SERUM; Value: 4.0; Range: 3.5-5.1; Units: MEQ/L; Status: F Test: CHLORIDE LEVEL; Value: 104; Range: 98-107; Units: MEQ/L; Status: F Test: CARBON DIOXIDE LEVEL; Value: 34; Range: 21-32; Abnormal: Above high normal; Units: MEQ/L; Status: F Test: ANION GAP; Value: 4; Range: 8-16; Abnormal: Below low normal; Units: MEQ/L; Status: F Test: CALCIUM LEVEL; Value: 8.3; Range: 8.5-10.1; Abnormal: Below low normal; Units: MG/DL; Status: F Test Note: ; Units are mL/min/1.73 m2 Chronic Kidney Disease Staging per NKF: Stage I & II GFR >=60 Normal to Mildly Decreased Stage III GFR 30-59 Moderately Decreased Stage IV GFR 15-29 Severely Decreased Stage V GFR <15 Very Little GFR Left ESRD GFR <15 on [employer] Lab Order: Pt & Aptt; SPEC'M 12/06/16 20:20 Test: PROTHROMBIN TIME; Value: 12.5; Range: 12.3-14.5; Units: SECONDS; Status: F Test: INR; Value: 0.92; Status: F Test: PARTIAL THROMBOPLASTIN TIME; Value: 25.2; Range: 26.6-37.1; Abnormal: Below low normal; Units: SECONDS; Status: F Test Note: ; THERAPUTIC HUMAN INR VALUES INDICATIONS NORMAL RANGES PROPHYLAXIS/TREATMENT OF: VENOUS THROMBOSIS 2.0-3.0 PULMONARY EMBOLISM 2.0-3.0 PREVENTION OF SYSTEMIC EMBOLISM FROM: TISSUE HEART VALVES 2.0-3.0 ACUTE MYOCARDIAL INFARCTION 2.0-3.0 VALVULAR HEART DISEASE 2.0-3.0 ATRIAL FIBRILLATION 2.0-3.0 MECHANICAL VALVES(HIGH RISK) 2.5-3.5 RECURRENT MYOCARDIAL INFARCTION 2.5-3.5 Lab Order: Cardiac Marker Panel; SPEC'M 12/06/16 22:07 Test: CPK CREATINE PHOSPHOKINASE; Value: 96; Range: 39-308; Units: U/L; Status: F Test: CK-MB VALUE MASS; Value: 1.1; Range: 0.0-3.6; Units: NG/ML; Status: F Test: MB/CK RELATIVE INDEX; Value: 1.14; Range: < OR =4; Status: F Test: TROPONIN I; Value: < 0.02; Range: < 0.10; Units: NG/ML; Status: F Test Note: ; DIAGNOSIS CRITERIA MMB ng/ml Relative Index (RI) NON-AMI < or = 5 N/A PHAN ZONE > 5 < or = 4 AMI > 5 > 4 Lab Order: CARDIAC MARKER PANEL; SPEC'M 12/07/16 02:42 Test: CPK CREATINE PHOSPHOKINASE; Value: 75; Range: 39-308; Units: U/L; Status: F Test: CK-MB VALUE MASS; Value: 1.0; Range: 0.0-3.6; Units: NG/ML; Status: F Test: MB/CK RELATIVE INDEX; Value: 1.33; Range: < OR =4; Status: F Test: TROPONIN I; Value: < 0.02; Range: < 0.10; Units: NG/ML; Status: F Test Note: ; DIAGNOSIS CRITERIA MMB ng/ml Relative Index (RI) NON-AMI < or = 5 N/A PHAN ZONE > 5 < or = 4 AMI > 5 > 4 Radiology Order: EKG-ADULT Test: EKG-ADULT REASON FOR EXAMINATION: Chest Pain; Stationary ECG Study; [facility] - ED; ; Test Date: 2016-12-06; Pat Name: ROBERT NOVOA Department:; Room: -; Gender: M 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: 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; : 1960 Requested By: MARIA DE JESUS MENDOZA; Order Number: [id number] Reading MD: Chas Kramer; Measurements; Intervals [place]; Rate: 63 P: 7; GA: 139 QRS: 6; QRSD: 122 T: 24; QT: 399; QTc: 411; Interpretive Statements; SINUS RHYTHM; MODERATE INTRAVENTRICULAR CONDUCTION DELAY; ; Electronically Signed On 12-07-2016 7:44:48 EST by Chas Kramer; Radiology Order: Chest, 1 View Test: Chest, 1 View REASON FOR EXAMINATION: Chest Pain; Clinical: Chest pain .; ; Comparison: 02/10/2016 .; ; Findings:; The mediastinum and cardiac silhouette are stable and within normal limits for; portable technique. The lung pickett are clear without acute consolidation,; effusion, or pneumothorax. Skeletal structures are intact.; ; Impression:; Normal portable chest x-ray; ; ; Signed by; Jhonathan Fairchild MD 12/07/2016 12:58 A; Radiology Order: ECG WITH READING ER PHYS Test: ECG WITH READING ER PHYS REASON FOR EXAMINATION: CX PN; Stationary ECG Study; 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 No cognitive and/or jp6 functional deficits noted. Patient verbalized understanding of disposition instructions. patient administered narcotics - no. The following High Risk Discharge criteria are identified: None. Discharged to home ambulatory, with significant other. Condition: improved. Discharge instructions given to patient, Instructed on discharge instructions, follow up and referral plans. medication usage, Demonstrated understanding of instructions, medications, Pt was receptive of discharge instructions/ teaching. Prescriptions given X 1. No special radiology studies were completed. Property sent home with patient. 03:24 Discharge ordered by Provider. cs11 03:47 Patient left the ED. jp6 Signatures: Dispatcher [employer] EDRadhika Waters RN RN jan Bartlett, Floyd fab Barnhardt, Gloria, Maddy Ivy, Section Leader And Machine Setter Unit ml3 Cesar Amita, BROOMCORN PRESS FEEDER BROOMCORN PRESS FEEDER ashok Maria De Jesus Mendoza, DO DO cs11 Yuliana Campos,RN RN mlc Yury Barton, BROOMCORN PRESS FEEDER BROOMCORN PRESS FEEDER mdr Desirae Ramírez RN RN jp6 Lisa Wellington RN dsf Chart Complete MTDD
== END 2016-12-07 03:47 | disposition home or self-care (01) ==
LOC: M ED 20:03
DX: R07.9 Chest pain, unspecified (principal); Z91.14 Patient's other noncompliance with medication regimen; I25.10 Atherosclerotic heart disease of native coronary artery without angina pectoris; J44.9 Chronic obstructive pulmonary disease, unspecified; K21.9 Gastro-esophageal reflux disease without esophagitis; E11.9 Type 2 diabetes mellitus without complications; E78.00 Pure hypercholesterolemia, unspecified; I25.2 Old myocardial infarction; F17.210 Nicotine dependence, cigarettes, uncomplicated; Z98.61 Coronary angioplasty status; Z79.02 Long term (current) use of antithrombotics/antiplatelets; Z92.240 Personal history of inhaled steroid therapy; Z79.82 Long term (current) use of aspirin; Z79.899 Other long term (current) drug therapy; Z88.0 Allergy status to penicillin

== ENCOUNTER → 2018-02-24 | Outpatient (REF) | payer OTHER ==
[2018-02-24 12:58] LABS: BASO % 0.4 % (0.0-1.0); EOS # 0.3 10^3/uL (0.0-0.50); EOS % 3.9 % (0.0-3.0); HEMATOCRIT 45.5 % (42.0-52.0); HEMOGLOBIN 15.3 g/dl (13.5-17.5); IMMATURE GRANULOCYTE % 0.1 % (0-3.0); LYMPH # 3.2 10^3/uL (1.5-4.5); LYMPH % 45.4 % (24.0-44.0); MEAN CORPUSCULAR HEMOGLOBIN 32.7 pg (27.0-33.0); MEAN CORPUSCULAR HGB CONC 33.6 g/dl (32.0-36.5); MEAN CORPUSCULAR VOLUME 97.2 fl (80.0-96.0); MONO # 0.5 10^3/uL (0.0-0.8); NEUTROPHILS % 43.2 % (36.0-66.0); PLATELET COUNT, AUTOMATED 270 10^3/uL (150-450); RED BLOOD COUNT 4.68 10^6/uL (4.30-6.10); RED CELL DISTRIBUTION WIDTH 12.1 % (11.5-14.5)
[2018-02-24 13:18] LABS: TOTAL 25(OH) VITAMIN D 79.5 NG/ML (30.0-100.0)
[2018-02-24 13:28] LABS: ESTIMATED AVERAGE GLUCOSE 148 MG/DL (60-110); HEMOGLOBIN A1c 6.8 %
[2018-02-24 13:29] LABS: ALBUMIN 3.8 GM/DL (3.2-5.2); ALBUMIN/GLOBULIN RATIO 1.09 (1.00-1.93); ALKALINE PHOSPHATASE 77 U/L (45-117); ALT/SGPT 64 U/L (12-78); ANION GAP 7 MEQ/L (8-16); AST/SGOT 27 U/L (7-37); BILIRUBIN,TOTAL 0.4 MG/DL (0.2-1.0); BLOOD UREA NITROGEN 13 MG/DL (7-18); CALCIUM LEVEL 8.8 MG/DL (8.5-10.1); CARBON DIOXIDE LEVEL 31 MEQ/L (21-32); CHLORIDE LEVEL 106 MEQ/L (98-107); CHOLESTEROL LEVEL 119 MG/DL (<200); CHOLESTEROL RISK RATIO 4.576 (<5); CREATININE FOR GFR 1.13 MG/DL (0.70-1.30); GLOMERULAR FILTRATION RATE > 60.0 (>56); GLUCOSE, FASTING 155 MG/DL (70-100); HDL CHOLESTEROL 26 MG/DL (>40); LDL CHOLESTEROL 52.6 MG/DL (<100); NON-HDL-C 93 MG/DL; POTASSIUM SERUM 4.1 MEQ/L (3.5-5.1); SODIUM LEVEL 144 MEQ/L (136-145); TOTAL PROTEIN 7.3 GM/DL (6.4-8.2); TRIGLYCERIDES LEVEL 202 MG/DL (<150)
== END ==
LOC: M LABDRWAD 12:32
DX: E11.9 Type 2 diabetes mellitus without complications (principal); E55.9 Vitamin D deficiency, unspecified; Z79.899 Other long term (current) drug therapy; E78.1 Pure hyperglyceridemia

== ENCOUNTER → 2018-12-30 | Outpatient (REF) | payer OTHER ==
[2018-12-30 12:42] LABS: BASO # 0.1 10^3/uL (0.0-0.2); BASO % 0.6 % (0.0-1.0); EOS # 0.4 10^3/uL (0.0-0.50); EOS % 4.9 % (0.0-3.0); HEMOGLOBIN 14.8 g/dl (13.5-17.5); LYMPH # 4.1 10^3/uL (1.5-4.5); LYMPH % 51.8 % (24.0-44.0); MEAN CORPUSCULAR HGB CONC 33.6 g/dl (32.0-36.5); MONO # 0.5 10^3/uL (0.0-0.8); MONO % 6.5 % (0.0-5.0); NEUTROPHILS # 2.8 10^3/uL (1.8-7.7); NEUTROPHILS % 35.8 % (36.0-66.0); PLATELET COUNT, AUTOMATED 330 10^3/uL (150-450); RED BLOOD COUNT 4.49 10^6/uL (4.30-6.10); WHITE BLOOD COUNT 7.9 10^3/uL (4.0-10.0)
[2018-12-30 13:17] LABS: ALBUMIN 3.5 GM/DL (3.2-5.2); ALT/SGPT 48 U/L (12-78); BILIRUBIN,TOTAL 0.5 MG/DL (0.2-1.0); BLOOD UREA NITROGEN 9 MG/DL (7-18); CALCIUM LEVEL 8.6 MG/DL (8.5-10.1); CARBON DIOXIDE LEVEL 28 MEQ/L (21-32); CHLORIDE LEVEL 106 MEQ/L (98-107); CHOLESTEROL LEVEL 100 MG/DL (<200); CHOLESTEROL RISK RATIO 4.166 (<5); CREATININE FOR GFR 1.13 MG/DL (0.70-1.30); FREE T4 0.94 NG/DL (0.76-1.46); GLOMERULAR FILTRATION RATE > 60.0 (>56); GLUCOSE, FASTING 114 MG/DL (70-100); HDL CHOLESTEROL 24 MG/DL (>40); LDL CHOLESTEROL 30 MG/DL (<100); NON-HDL-C 76 MG/DL; POTASSIUM SERUM 3.9 MEQ/L (3.5-5.1); SODIUM LEVEL 143 MEQ/L (136-145); TRIGLYCERIDES LEVEL 230 MG/DL (<150)
[2018-12-30 13:31] LABS: HEMOGLOBIN A1c 7.4 %
== END ==
LOC: M LABDRWAD 12:08
PROVIDERS: ATTEND Nurse Practitioner Adult Health
DX: I10 Essential (primary) hypertension (principal); E78.00 Pure hypercholesterolemia, unspecified; E11.65 Type 2 diabetes mellitus with hyperglycemia; E55.9 Vitamin D deficiency, unspecified

== ENCOUNTER → 2019-10-10 | Outpatient (CLI) | payer OTHER ==
[~2019-10-10] MED LIST: ALBU8.5H INH; ALOG25TA PO; ASPI81TA85 PO; ATEN50TA2 PO; ATOR80TA59 PO; CLOP75TA2 PO; FURO20TA2 PO; GABA600T4 PO; METF10004 PO; NITR0.4S14 SL; OMEP-221 PO; VITA500045 PO
--- NOTE | 2019-10-10 12:01 | REP ---
Clinical: Preoperative assessment . Comparison: 12/06/2016 . Technique: PA and lateral. Findings: The mediastinum and cardiac silhouette are normal. The lung pickett are clear and without acute consolidation, effusion, or pneumothorax. The skeletal structures are intact and normal. Impression: 1. No acute cardiopulmonary process. Electronically Signed by Jhonathan Fairchild MD 10/10/2019 11:52 A
== END ==
LOC: M ADAMS 11:28
PROVIDERS: ATTEND Physician Assistant Medical
DX: Z01.811 Encounter for preprocedural respiratory examination (principal); J44.9 Chronic obstructive pulmonary disease, unspecified; G47.33 Obstructive sleep apnea (adult) (pediatric)

== ENCOUNTER 2019-11-28 06:02 | Day surgery (SDC) | payer OTHER ==
[~2019-11-28] VITALS: Ht 172.7 cm; Wt 89.1 kg
[~2019-11-28 06:02] MED LIST changes: +LIDOCAINE 1% MDV 20ML VIAL SQ PRN; +LR 1,000 ML IV ONE; +LevoFLOXacin IV 500 MG in IV 1 EA IV ONE; +VITA1CAP25 PO
[2019-11-28 06:25] LABS: HEMATOCRIT 48.1 % (42.0-52.0); HEMOGLOBIN 15.7 g/dl (13.5-17.5); MEAN CORPUSCULAR HEMOGLOBIN 31.8 pg (27.0-33.0); MEAN CORPUSCULAR HGB CONC 32.6 g/dl (32.0-36.5); MEAN CORPUSCULAR VOLUME 97.6 fl (80.0-96.0); PLATELET COUNT, AUTOMATED 251 10^3/uL (150-450); RED BLOOD COUNT 4.93 10^6/uL (4.30-6.10); WHITE BLOOD COUNT 8.9 10^3/uL (4.0-10.0)
[2019-11-28 06:57] LABS: ALBUMIN 3.6 GM/DL (3.2-5.2); BILIRUBIN,TOTAL 0.4 MG/DL (0.2-1.0); CALCIUM LEVEL 8.8 MG/DL (8.5-10.1); CREATININE FOR GFR 1.43 MG/DL (0.70-1.30); GLOMERULAR FILTRATION RATE 53.9 (>56); TOTAL PROTEIN 7.7 GM/DL (6.4-8.2)
[2019-11-28] MEDS ORDERED: BUPIVACAINE HCL 0.25% 10 ML VIAL As Ordered ONE (07:00)
[2019-11-28] MEDS ORDERED: BUPIVACAINE/EPIN 0.25% 30 ML VIAL As Ordered ONE (07:00)
[2019-11-28] MEDS ORDERED: BUPIVACAINE LIPOSOME/PF 1.3% 20ML VIAL (13.3MG/ML)(EXPAREL)(C9290 PER1MG) As Ordered ONE (07:00)
[2019-11-28] MEDS ORDERED: MIDAZOLAM INJ 2 MG/2 ML VIAL (J2250) As Ordered ONE (07:18)
[2019-11-28] MEDS ORDERED: propofoL 200 MG/20 ML VIAL As Ordered ONE (07:18)
[2019-11-28] MEDS ORDERED: ROCURONIUM BROMIDE 50 MG/5 ML VIAL As Ordered ONE (07:18)
[2019-11-28] MEDS ORDERED: LIDOCAINE 2% INJ 100 MG/5 ML SDV (FOR ANES.) As Ordered ONE (07:18)
[2019-11-28] MEDS ORDERED: METOPROLOL 5 MG/5 ML VIAL As Ordered ONE (07:19)
[2019-11-28] MEDS ORDERED: ONDANSETRON 4MG/2ML VIAL (J2405) As Ordered ONE (07:19)
[2019-11-28] MEDS ORDERED: fentaNYL 100 MCG/2 ML INJECTION (J3010) As Ordered ONE (07:19)
[2019-11-28] MEDS ORDERED: dexameTHASONE 4 MG/ML 1ML VIAL (J1100) As Ordered ONE (07:19)
[2019-11-28] MEDS ORDERED: ACETAMINOPHEN 1000MG 100ML IV BTL (OFIRMEV) (J0131 PER 10MG) As Ordered ONE (08:19)
[2019-11-28] MEDS ORDERED: KETOROLAC 60 MG/2 ML VIAL (J1885) As Ordered ONE (08:22)
[2019-11-28] MEDS ORDERED: SUGAMMADEX SODIUM 500 MG/5 ML VIAL (BRIDION) As Ordered ONE (08:22)
--- NOTE | 2019-11-28 08:52 | RO ---
DATE OF PROCEDURE: 11/28/2019 PREOPERATIVE DIAGNOSIS: Umbilical hernia. POSTOPERATIVE DIAGNOSIS: Incarcerated umbilical hernia. PROCEDURE: Repair of incarcerated umbilical hernia. SURGEON: Migel Hogan MD EDGE RUNNER: ANESTHESIA: General endotracheal anesthesia. ESTIMATED BLOOD LOSS: Minimal. FLUIDS: Crystalloid. BRIEF PROCEDURE SUMMARY: The patient was brought to the operating room and was general anesthesia. After adequate anesthesia and preoperative antibiotics were given, the patient was prepped and draped in the usual sterile fashion. Next, a supraumbilical incision was made with skin knife. Blunt dissection was carried down to fascia and the umbilical hernia and it was mobilized level of fascia. The hernia sac was transected at the level of fascia and there was incarcerated omentum within the hernia sac itself, which was transected with clamps and ligated with Vicryl ties. The hernia sac, which had been transected at the level of the fascia, revealed a fascial defect that was at most about a centimeter in size. The fascial defect then was closed with three [id number] #0 Ethibond sutures and #3-0 Vicryl was used to tack down the umbilicus to the fascia. Then, the dermis with #3-0 Vicryl and #4-0 Vicryl subcuticular was used to approximate the skin. Steri-Strips and dry sterile dressing was applied. The patient was awakened, extubated, brought to the recovery room awake, alert and hemodynamically stable. Sponge and needle counts correct times two.
[2019-11-28] MEDS ORDERED: fentaNYL 100 MCG/2 ML INJECTION (J3010) IV PRN (09:00)
[2019-11-28] MEDS ORDERED: PERCOCET 5MG/325MG TAB PO PRN (09:00)
[2019-11-28] MEDS ORDERED: LR 1,000 ML IV SCH ×2 (09:00)
[2019-11-28] MEDS ORDERED: HYDROMORPHONE HCL 0.5 MG/ 0.5 ML SYRINGE (J1170 PER 1) IV PRN (09:00)
[2019-11-28] MEDS ORDERED: ONDANSETRON 4MG/2ML VIAL (J2405) IV PRN ×2 (09:00)
[2019-11-28] MEDS ORDERED: NORCO, ANEXSIA 5/325MG TABLET (HYDROcodone/ACETAMINOPHEN) PO PRN (09:00)
[2019-11-28] MEDS ORDERED: oxyCODONE 5MG TAB As Ordered ONE (09:03)
[2019-11-28] MEDS: oxyCODONE 5MG TAB PO PRN ×2 (09:05→09:45)
[2019-11-28 09:12] VITALS: BP 121/91
[2019-11-28] MEDS ORDERED: KETOROLAC 30 MG/ML VIAL (J1885) IV SCH (15:00)
== END 2019-11-28 10:00 | disposition home or self-care (01) ==
LOC: M SDC 06:02
PROVIDERS: ATTEND Surgery
DX: K42.0 Umbilical hernia with obstruction, without gangrene (principal); I25.10 Atherosclerotic heart disease of native coronary artery without angina pectoris; I25.2 Old myocardial infarction; I10 Essential (primary) hypertension; E78.5 Hyperlipidemia, unspecified; E11.9 Type 2 diabetes mellitus without complications; J44.9 Chronic obstructive pulmonary disease, unspecified; G47.30 Sleep apnea, unspecified; K21.9 Gastro-esophageal reflux disease without esophagitis; F41.9 Anxiety disorder, unspecified; F32.9 Major depressive disorder, single episode, unspecified; F17.218 Nicotine dependence, cigarettes, with other nicotine-induced disorders; Z79.82 Long term (current) use of aspirin; Z79.84 Long term (current) use of oral hypoglycemic drugs; Z79.899 Other long term (current) drug therapy; Z88.0 Allergy status to penicillin
CPT/HCPCS: 36415; 49587; 80053; 85027; 88302; C9290; J0131; J1100; J1885; J1956; J2250; J2405; J3010

== ENCOUNTER → 2021-03-10 | Outpatient (REF) | payer OTHER ==
[~2021-03-10] MED LIST changes: -ASPI81TA85 PO; +ASPI81TA86 PO; -LIDOCAINE 1% MDV 20ML VIAL SQ PRN; -LR 1,000 ML IV ONE; -LevoFLOXacin IV 500 MG in IV 1 EA IV ONE
[2021-03-10 14:11] LABS: ALBUMIN 3.9 GM/DL (3.2-5.2); BILIRUBIN,TOTAL 0.4 MG/DL (0.2-1.0); CALCIUM LEVEL 9.2 MG/DL (8.8-10.2); CREATININE FOR GFR 1.47 MG/DL (0.70-1.30); POTASSIUM SERUM 3.9 MEQ/L (3.5-5.1); TOTAL PROTEIN 6.9 GM/DL (6.4-8.2)
== END ==
LOC: M LABDRWAD 12:14
PROVIDERS: ATTEND Nurse Practitioner Family
DX: I10 Essential (primary) hypertension (principal)

== ENCOUNTER → 2021-06-09 | Outpatient (REF) | payer OTHER ==
[2021-06-09 14:00] LABS: BASO # 0.1 10^3/uL (0.0-0.2); BASO % 0.7 % (0.0-1.0); EOS # 0.4 10^3/uL (0.0-0.5); EOS % 4.5 % (0.0-3.0); HEMATOCRIT 51.4 % (42.0-52.0); HEMOGLOBIN 16.8 g/dl (13.5-17.5); LYMPH # 4.9 10^3/uL (1.5-5.0); MEAN CORPUSCULAR HEMOGLOBIN 31.8 pg (27.0-33.0); MEAN CORPUSCULAR HGB CONC 32.7 g/dl (32.0-36.5); MEAN CORPUSCULAR VOLUME 97.3 fl (80.0-96.0); MONO # 0.6 10^3/uL (0.0-0.8); MONO % 5.9 % (2.0-8.0); NEUTROPHILS # 3.5 10^3/uL (1.5-8.5); NEUTROPHILS % 36.7 % (36.0-66.0); PLATELET COUNT, AUTOMATED 326 10^3/uL (150-450); RED BLOOD COUNT 5.28 10^6/uL (4.30-6.10); WHITE BLOOD COUNT 9.5 10^3/uL (4.0-10.0)
[2021-06-09 14:13] LABS: HEMOGLOBIN A1c 6.1 %
[2021-06-09 14:34] LABS: CREATININE FOR GFR 1.41 MG/DL (0.70-1.30); GLOMERULAR FILTRATION RATE 54.4 (>49); POTASSIUM SERUM 4.3 MEQ/L (3.5-5.1)
[2021-06-09 14:35] LABS: BILIRUBIN,TOTAL 0.3 MG/DL (0.2-1.0); CALCIUM LEVEL 9.1 MG/DL (8.8-10.2); CHOLESTEROL RISK RATIO 5.75 (<5); MAGNESIUM LEVEL 2.1 MG/DL (1.8-2.4); PROSTATIC SPECIFIC AG MONITOR 0.17 NG/ML (< 4.00); THYROID STIMULATING HORMONE 1.67 uIU/ML (0.358-3.740); TOTAL PROTEIN 7.4 GM/DL (6.4-8.2)
== END ==
LOC: M LABDRWAD 12:53
PROVIDERS: ATTEND Nurse Practitioner Family
DX: E11.65 Type 2 diabetes mellitus with hyperglycemia (principal); Z79.899 Other long term (current) drug therapy

== ENCOUNTER → 2021-09-01 | Outpatient (REF) | payer OTHER ==
[2021-09-01 13:29] LABS: BASO # 0.1 10^3/uL (0.0-0.2); BASO % 0.5 % (0.0-1.0); EOS # 0.5 10^3/uL (0.0-0.5); EOS % 4.7 % (0.0-3.0); HEMATOCRIT 48.7 % (42.0-52.0); HEMOGLOBIN 15.9 g/dl (13.5-17.5); LYMPH # 5.2 10^3/uL (1.5-5.0); LYMPH % 51.7 % (24.0-44.0); MEAN CORPUSCULAR HGB CONC 32.6 g/dl (32.0-36.5); MONO # 0.6 10^3/uL (0.0-0.8); MONO % 5.9 % (2.0-8.0); NEUTROPHILS # 3.7 10^3/uL (1.5-8.5); NEUTROPHILS % 37.1 % (36.0-66.0); PLATELET COUNT, AUTOMATED 339 10^3/uL (150-450); RED BLOOD COUNT 4.97 10^6/uL (4.30-6.10); WHITE BLOOD COUNT 10.1 10^3/uL (4.0-10.0)
[2021-09-01 13:47] LABS: HEMOGLOBIN A1c 6.2 %
[2021-09-01 13:59] LABS: ALBUMIN 3.7 GM/DL (3.2-5.2); BILIRUBIN,TOTAL 0.3 MG/DL (0.2-1.0); CALCIUM LEVEL 9.4 MG/DL (8.8-10.2); CHOLESTEROL RISK RATIO 4.16 (<5); CREATININE FOR GFR 1.33 MG/DL (0.70-1.30); GLOMERULAR FILTRATION RATE 58.2 (>49); MAGNESIUM LEVEL 1.9 MG/DL (1.8-2.4); POTASSIUM SERUM 4.5 MEQ/L (3.5-5.1); THYROID STIMULATING HORMONE 1.75 uIU/ML (0.358-3.740); TOTAL PROTEIN 7.2 GM/DL (6.4-8.2)
== END ==
LOC: M LABDRWAD 12:34
PROVIDERS: ATTEND Nurse Practitioner Family
DX: Z00.01 Encounter for general adult medical examination with abnormal findings (principal); E11.65 Type 2 diabetes mellitus with hyperglycemia; I10 Essential (primary) hypertension; E78.00 Pure hypercholesterolemia, unspecified; Z13.29 Encounter for screening for other suspected endocrine disorder; E55.9 Vitamin D deficiency, unspecified

== ENCOUNTER → 2021-10-15 | Outpatient (REF) | payer OTHER ==
[~2021-10-15] MED LIST changes: -OMEP-221 PO; +OMEP40CA5 PO
[2021-10-15 12:50] LABS: BASO # 0.1 10^3/uL (0.0-0.2); BASO % 0.6 % (0.0-1.0); EOS # 0.3 10^3/uL (0.0-0.5); EOS % 2.7 % (0.0-3.0); HEMATOCRIT 46.4 % (42.0-52.0); HEMOGLOBIN 15.3 g/dl (13.5-17.5); LYMPH # 5.5 10^3/uL (1.5-5.0); LYMPH % 46.1 % (24.0-44.0); MEAN CORPUSCULAR HEMOGLOBIN 32.1 pg (27.0-33.0); MEAN CORPUSCULAR VOLUME 97.5 fl (80.0-96.0); MONO # 0.9 10^3/uL (0.0-0.8); MONO % 7.4 % (2.0-8.0); NEUTROPHILS % 42.4 % (36.0-66.0); PLATELET COUNT, AUTOMATED 441 10^3/uL (150-450); RED BLOOD COUNT 4.76 10^6/uL (4.30-6.10); WHITE BLOOD COUNT 11.9 10^3/uL (4.0-10.0)
[2021-10-15 13:14] LABS: HEMOGLOBIN A1c 6.2 %
[2021-10-15 13:30] LABS: ALBUMIN 3.7 GM/DL (3.2-5.2); ALT/SGPT 44 U/L (12-78); BILIRUBIN,TOTAL 0.2 MG/DL (0.2-1.0); BLOOD UREA NITROGEN 26 MG/DL (7-18); CALCIUM LEVEL 9.3 MG/DL (8.8-10.2); CARBON DIOXIDE LEVEL 31 MEQ/L (21-32); CHLORIDE LEVEL 104 MEQ/L (98-107); CHOLESTEROL LEVEL 102 MG/DL (<200); CHOLESTEROL RISK RATIO 4.636 (<5); CREATININE FOR GFR 1.23 MG/DL (0.70-1.30); GLOMERULAR FILTRATION RATE > 60.0 (>49); GLUCOSE, FASTING 130 MG/DL (70-100); HDL CHOLESTEROL 22 MG/DL (>40); LDL CHOLESTEROL 23 MG/DL (<100); NON-HDL-C 80 MG/DL; POTASSIUM SERUM 4.2 MEQ/L (3.5-5.1); SODIUM LEVEL 141 MEQ/L (136-145); TOTAL PROTEIN 7.3 GM/DL (6.4-8.2); TRIGLYCERIDES LEVEL 285 MG/DL (<150)
== END ==
LOC: M LABDRWAD 12:11
PROVIDERS: ATTEND Nurse Practitioner Family
DX: Z00.01 Encounter for general adult medical examination with abnormal findings (principal); E11.65 Type 2 diabetes mellitus with hyperglycemia; I10 Essential (primary) hypertension; E78.00 Pure hypercholesterolemia, unspecified; Z13.29 Encounter for screening for other suspected endocrine disorder; E55.9 Vitamin D deficiency, unspecified

== ENCOUNTER → 2022-02-11 | Outpatient (CLI) | payer OTHER ==
[2022-02-11 12:50] LABS: BASO # 0.1 10^3/uL (0.0-0.2); BASO % 0.8 % (0.0-1.0); EOS # 0.5 10^3/uL (0.0-0.5); EOS % 7.3 % (0.0-3.0); HEMATOCRIT 42.5 % (42.0-52.0); HEMOGLOBIN 14.1 g/dl (13.5-17.5); LYMPH # 3.4 10^3/uL (1.5-5.0); LYMPH % 47.3 % (24.0-44.0); MEAN CORPUSCULAR HEMOGLOBIN 31.5 pg (27.0-33.0); MEAN CORPUSCULAR HGB CONC 33.2 g/dl (32.0-36.5); MEAN CORPUSCULAR VOLUME 94.9 fl (80.0-96.0); MONO # 0.5 10^3/uL (0.0-0.8); MONO % 6.6 % (2.0-8.0); NEUTROPHILS # 2.7 10^3/uL (1.5-8.5); NEUTROPHILS % 37.6 % (36.0-66.0); PLATELET COUNT, AUTOMATED 322 10^3/uL (150-450); RED BLOOD COUNT 4.48 10^6/uL (4.30-6.10); WHITE BLOOD COUNT 7.1 10^3/uL (4.0-10.0)
[2022-02-11 13:31] LABS: ALBUMIN 3.6 GM/DL (3.2-5.2); BILIRUBIN,TOTAL 0.6 MG/DL (0.2-1.0); CALCIUM LEVEL 8.7 MG/DL (8.8-10.2); CHOLESTEROL RISK RATIO 4.4 (<5); CREATININE FOR GFR 1.41 MG/DL (0.70-1.30); GLOMERULAR FILTRATION RATE 54.4 (>49); MAGNESIUM LEVEL 1.9 MG/DL (1.8-2.4); POTASSIUM SERUM 3.7 MEQ/L (3.5-5.1); THYROID STIMULATING HORMONE 1.98 uIU/ML (0.358-3.740); TOTAL PROTEIN 6.6 GM/DL (6.4-8.2)
[2022-02-11 15:57] LABS: HEMOGLOBIN A1c 7.4 %
== END ==
LOC: M ADAMS 09:45
PROVIDERS: ATTEND Nurse Practitioner Family
DX: Z00.01 Encounter for general adult medical examination with abnormal findings (principal); E11.65 Type 2 diabetes mellitus with hyperglycemia; I10 Essential (primary) hypertension; E78.00 Pure hypercholesterolemia, unspecified; Z13.29 Encounter for screening for other suspected endocrine disorder; E55.9 Vitamin D deficiency, unspecified

== ENCOUNTER → 2022-07-28 | Outpatient (CLI) | payer OTHER ==
[2022-07-28 13:20] LABS: BASO # 0.1 10^3/uL (0.0-0.2); BASO % 0.6 % (0.0-1.0); EOS # 0.4 10^3/uL (0.0-0.5); EOS % 5.2 % (0.0-3.0); HEMATOCRIT 44.8 % (42.0-52.0); HEMOGLOBIN 14.8 g/dl (13.5-17.5); LYMPH # 3.8 10^3/uL (1.5-5.0); LYMPH % 44.4 % (24.0-44.0); MEAN CORPUSCULAR HEMOGLOBIN 32.4 pg (27.0-33.0); MONO # 0.6 10^3/uL (0.0-0.8); MONO % 7.5 % (2.0-8.0); NEUTROPHILS # 3.6 10^3/uL (1.5-8.5); NEUTROPHILS % 42.2 % (36.0-66.0); PLATELET COUNT, AUTOMATED 324 10^3/uL (150-450); RED BLOOD COUNT 4.57 10^6/uL (4.30-6.10); WHITE BLOOD COUNT 8.5 10^3/uL (4.0-10.0)
[2022-07-28 13:43] LABS: HEMOGLOBIN A1c 6.4 %
[2022-07-28 14:01] LABS: ALBUMIN 3.7 GM/DL (3.2-5.2); ALT/SGPT 37 U/L (12-78); BILIRUBIN,TOTAL 0.2 MG/DL (0.2-1.0); BLOOD UREA NITROGEN 17 MG/DL (7-18); CALCIUM LEVEL 9.2 MG/DL (8.8-10.2); CARBON DIOXIDE LEVEL 28 MEQ/L (21-32); CHLORIDE LEVEL 108 MEQ/L (98-107); CHOLESTEROL LEVEL 102 MG/DL (<200); CHOLESTEROL RISK RATIO 3.923 (<5); CREATININE FOR GFR 1.28 MG/DL (0.70-1.30); GLOMERULAR FILTRATION RATE > 60.0 (>49); GLUCOSE, FASTING 116 MG/DL (70-100); HDL CHOLESTEROL 26 MG/DL (>40); LDL CHOLESTEROL 54 MG/DL (<100); MAGNESIUM LEVEL 2.2 MG/DL (1.8-2.4); NON-HDL-C 76 MG/DL; POTASSIUM SERUM 3.9 MEQ/L (3.5-5.1); SODIUM LEVEL 140 MEQ/L (136-145); TRIGLYCERIDES LEVEL 112 MG/DL (<150)
== END ==
LOC: M ADAMS 09:27
PROVIDERS: ATTEND Nurse Practitioner Family
DX: E11.65 Type 2 diabetes mellitus with hyperglycemia (principal)

== ENCOUNTER → 2022-11-24 | Outpatient (CLI) | payer OTHER ==
[2022-11-24 14:05] LABS: BASO # 0.1 10^3/uL (0.0-0.2); BASO % 0.8 % (0.0-1.0); EOS # 0.5 10^3/uL (0.0-0.5); EOS % 6.1 % (0.0-3.0); HEMATOCRIT 45.4 % (42.0-52.0); HEMOGLOBIN 14.7 g/dl (13.5-17.5); LYMPH # 4.5 10^3/uL (1.5-5.0); LYMPH % 53.5 % (24.0-44.0); MEAN CORPUSCULAR HGB CONC 32.4 g/dl (32.0-36.5); MEAN CORPUSCULAR VOLUME 98.7 fl (80.0-96.0); MONO # 0.7 10^3/uL (0.0-0.8); MONO % 7.8 % (2.0-8.0); NEUTROPHILS # 2.6 10^3/uL (1.5-8.5); NEUTROPHILS % 31.6 % (36.0-66.0); PLATELET COUNT, AUTOMATED 339 10^3/uL (150-450); WHITE BLOOD COUNT 8.4 10^3/uL (4.0-10.0)
[2022-11-24 14:18] LABS: HEMOGLOBIN A1c 6.3 % (4.0-6.0)
[2022-11-24 14:36] LABS: MAGNESIUM LEVEL 1.9 MG/DL (1.8-2.4)
[2022-11-24 14:38] LABS: ALBUMIN 3.9 G/DL (3.2-5.2); BILIRUBIN,TOTAL 0.2 MG/DL (0.3-1.2); CALCIUM LEVEL 9.2 MG/DL (8.3-10.6); CHOLESTEROL RISK RATIO 4.88 (<5); CREATININE FOR GFR 1.31 MG/DL (0.70-1.30); HDL CHOLESTEROL 21.5 MG/DL (>40); LDL CHOLESTEROL 48.7 MG/DL (<100); POTASSIUM SERUM 3.9 MMOL/L (3.5-5.1); TOTAL PROTEIN 6.8 G/DL (5.7-8.2)
[2022-11-24 14:40] LABS: FREE T4 1.06 NG/DL (0.89-1.76); THYROID STIMULATING HORMONE 2.787 uIU/ML (0.55-4.78)
== END ==
LOC: M LABDRWAD 08:48
PROVIDERS: ATTEND Nurse Practitioner Family
DX: Z00.01 Encounter for general adult medical examination with abnormal findings (principal); E11.65 Type 2 diabetes mellitus with hyperglycemia; I10 Essential (primary) hypertension; E78.00 Pure hypercholesterolemia, unspecified; E83.42 Hypomagnesemia; Z13.29 Encounter for screening for other suspected endocrine disorder; Z12.5 Encounter for screening for malignant neoplasm of prostate

== ENCOUNTER → 2023-05-20 | Outpatient (REF) | payer OTHER ==
[2023-05-20 13:22] LABS: BASO # 0.1 10^3/uL (0.0-0.2); BASO % 0.7 % (0.0-1.0); EOS # 0.5 10^3/uL (0.0-0.5); EOS % 5.3 % (0.0-3.0); HEMOGLOBIN 15.6 g/dl (13.5-17.5); LYMPH # 4.4 10^3/uL (1.5-5.0); LYMPH % 45.5 % (24.0-44.0); MEAN CORPUSCULAR HEMOGLOBIN 32.6 pg (27.0-33.0); MEAN CORPUSCULAR HGB CONC 32.5 g/dl (32.0-36.5); MEAN CORPUSCULAR VOLUME 100.4 fl (80.0-96.0); MONO # 0.8 10^3/uL (0.0-0.8); MONO % 7.8 % (2.0-8.0); NEUTROPHILS # 3.9 10^3/uL (1.5-8.5); NEUTROPHILS % 40.5 % (36.0-66.0); PLATELET COUNT, AUTOMATED 333 10^3/uL (150-450); RED BLOOD COUNT 4.78 10^6/uL (4.30-6.10); WHITE BLOOD COUNT 9.6 10^3/uL (4.0-10.0)
[2023-05-20 13:27] LABS: ALBUMIN 3.8 G/DL (3.2-5.2); ALKALINE PHOSPHATASE 42 U/L (46-116); ALT/SGPT 28 U/L (7.0-40); AST/SGOT 14 U/L (<34); BILIRUBIN,TOTAL 0.2 MG/DL (0.3-1.2); BLOOD UREA NITROGEN 17 MG/DL (9-23); CALCIUM LEVEL 9.4 MG/DL (8.3-10.6); CARBON DIOXIDE LEVEL 32 MMOL/L (20-31); CHLORIDE LEVEL 108 MMOL/L (98-107); CHOLESTEROL LEVEL 110 MG/DL (<200); CHOLESTEROL RISK RATIO 4.16 (<5); CREATININE FOR GFR 1.18 MG/DL (0.70-1.30); GLOMERULAR FILTRATION RATE > 60.0 (>49); GLUCOSE, FASTING 120 MG/DL (74-106); HDL CHOLESTEROL 26.4 MG/DL (>40); LDL CHOLESTEROL 53.6 MG/DL (<100); NON-HDL-C 83.6 MG/DL; POTASSIUM SERUM 3.9 MMOL/L (3.5-5.1); SODIUM LEVEL 142 MMOL/L (136-145); TOTAL PROTEIN 6.5 G/DL (5.7-8.2); TRIGLYCERIDES LEVEL 150 MG/DL (<150)
== END ==
LOC: M LABDRWAD 12:22
PROVIDERS: ATTEND Registered Nurse
DX: E11.65 Type 2 diabetes mellitus with hyperglycemia (principal); Z79.899 Other long term (current) drug therapy; I10 Essential (primary) hypertension; E78.00 Pure hypercholesterolemia, unspecified

== ENCOUNTER → 2023-09-23 | Outpatient (REF) | payer OTHER ==
[2023-09-23 12:59] LABS: BASO # 0.1 10^3/uL (0.0-0.2); EOS # 0.4 10^3/uL (0.0-0.5); EOS % 4.7 % (0.0-3.0); HEMATOCRIT 50.1 % (42.0-52.0); HEMOGLOBIN 16.3 g/dl (13.5-17.5); LYMPH # 4.5 10^3/uL (1.5-5.0); LYMPH % 51.6 % (24.0-44.0); MEAN CORPUSCULAR HEMOGLOBIN 32.1 pg (27.0-33.0); MEAN CORPUSCULAR HGB CONC 32.5 g/dl (32.0-36.5); MEAN CORPUSCULAR VOLUME 98.8 fl (80.0-96.0); MONO # 0.6 10^3/uL (0.0-0.8); MONO % 6.8 % (2.0-8.0); NEUTROPHILS # 3.1 10^3/uL (1.5-8.5); NEUTROPHILS % 35.7 % (36.0-66.0); PLATELET COUNT, AUTOMATED 354 10^3/uL (150-450); RED BLOOD COUNT 5.07 10^6/uL (4.30-6.10); WHITE BLOOD COUNT 8.7 10^3/uL (4.0-10.0)
[2023-09-23 13:19] LABS: HEMOGLOBIN A1c 6.4 % (4.0-6.0)
[2023-09-23 13:22] LABS: CREATININE, URINE 133.3 MG/DL
[2023-09-23 13:23] LABS: ALBUMIN 3.8 G/DL (3.2-5.2); ALKALINE PHOSPHATASE 49 U/L (46-116); ALT/SGPT 22 U/L (7.0-40); AST/SGOT 17 U/L (<34); BILIRUBIN,TOTAL 0.3 MG/DL (0.3-1.2); BLOOD UREA NITROGEN 19 MG/DL (9-23); CARBON DIOXIDE LEVEL 32 MMOL/L (20-31); CHLORIDE LEVEL 107 MMOL/L (98-107); CREATININE FOR GFR 1.26 MG/DL (0.70-1.30); GLOMERULAR FILTRATION RATE > 60.0 (>49); GLUCOSE, FASTING 131 MG/DL (74-106); POTASSIUM SERUM 4.4 MMOL/L (3.5-5.1); SODIUM LEVEL 144 MMOL/L (136-145); TOTAL PROTEIN 7.1 G/DL (5.7-8.2)
== END ==
LOC: M LABDRWAD 12:23
PROVIDERS: ATTEND Registered Nurse
DX: Z79.01 Long term (current) use of anticoagulants (principal); I10 Essential (primary) hypertension; E11.65 Type 2 diabetes mellitus with hyperglycemia; E83.42 Hypomagnesemia

== ENCOUNTER → 2024-03-01 | Outpatient (REF) | payer OTHER ==
[2024-03-01 13:38] LABS: HEMATOCRIT 47.8 % (42.0-52.0); HEMOGLOBIN 15.7 g/dl (13.5-17.5); MEAN CORPUSCULAR HEMOGLOBIN 32.8 pg (27.0-33.0); MEAN CORPUSCULAR HGB CONC 32.8 g/dl (32.0-36.5); MEAN CORPUSCULAR VOLUME 99.8 fl (80.0-96.0); PLATELET COUNT, AUTOMATED 333 10^3/uL (150-450); RED BLOOD COUNT 4.79 10^6/uL (4.30-6.10); WHITE BLOOD COUNT 8.6 10^3/uL (4.0-10.0)
[2024-03-01 14:17] LABS: HEMOGLOBIN A1c 6.6 % (4.0-6.0)
== END ==
LOC: M LABDRWAD 12:45
PROVIDERS: ATTEND Registered Nurse
DX: Z79.899 Other long term (current) drug therapy (principal); E11.65 Type 2 diabetes mellitus with hyperglycemia; E78.00 Pure hypercholesterolemia, unspecified; E55.9 Vitamin D deficiency, unspecified; E83.42 Hypomagnesemia

== ENCOUNTER → 2024-09-15 | Outpatient (REF) | payer OTHER ==
[~2024-09-15] MED LIST changes: +GABA-1490 PO; -GABA600T4 PO
[2024-09-15 13:21] LABS: HEMOGLOBIN 14.5 g/dl (13.5-17.5); MEAN CORPUSCULAR HEMOGLOBIN 31.7 pg (27.0-33.0); MEAN CORPUSCULAR HGB CONC 32.2 g/dl (32.0-36.5); MEAN CORPUSCULAR VOLUME 98.5 fl (80.0-96.0); PLATELET COUNT, AUTOMATED 373 10^3/uL (150-450); RED BLOOD COUNT 4.57 10^6/uL (4.30-6.10); WHITE BLOOD COUNT 9.2 10^3/uL (4.0-10.0)
[2024-09-15 13:39] LABS: HEMOGLOBIN A1c 6.2 % (4.0-6.0)
[2024-09-15 13:47] LABS: ALBUMIN 3.7 G/DL (3.2-5.2); ALKALINE PHOSPHATASE 51 U/L (40-129); ALT/SGPT 25 U/L (7.0-40); AST/SGOT 18 U/L (<34); BILIRUBIN,TOTAL 0.3 MG/DL (0.3-1.2); BLOOD UREA NITROGEN 18 MG/DL (9-23); CALCIUM LEVEL 9.6 MG/DL (8.3-10.6); CARBON DIOXIDE LEVEL 29 MMOL/L (20-31); CHLORIDE LEVEL 108 MMOL/L (98-107); CHOLESTEROL LEVEL 105 MG/DL (<200); CHOLESTEROL RISK RATIO 4.05 (<5); CREATININE FOR GFR 1.22 MG/DL (0.70-1.30); GLOMERULAR FILTRATION RATE > 60.0 (>49); GLUCOSE, FASTING 118 MG/DL (74-106); HDL CHOLESTEROL 25.9 MG/DL (>40); LDL CHOLESTEROL 52.3 MG/DL (<100); NON-HDL-C 79.1 MG/DL; SODIUM LEVEL 143 MMOL/L (136-145); TOTAL PROTEIN 6.9 G/DL (5.7-8.2); TRIGLYCERIDES LEVEL 134 MG/DL (<150)
[2024-09-15 13:49] LABS: TOTAL 25(OH) VITAMIN D 75.9 NG/ML (20.0-100.0)
[2024-09-20 09:27] LABS: MAGNESIUM LEVEL 2.2 MG/DL (1.8-2.4)
== END ==
LOC: M LABDRWAD 12:58
PROVIDERS: ATTEND Registered Nurse
DX: E11.65 Type 2 diabetes mellitus with hyperglycemia (principal); E78.00 Pure hypercholesterolemia, unspecified; E55.9 Vitamin D deficiency, unspecified; N52.9 Male erectile dysfunction, unspecified

== ENCOUNTER → 2025-09-12 | Outpatient (CLI) | payer OTHER ==
[2025-09-12 14:09] LABS: ALT/SGPT 28.0 U/L (7.0-40); AST/SGOT 19.0 U/L (<34); CALCIUM LEVEL 9.3 MG/DL (8.3-10.6); CARBON DIOXIDE LEVEL 30.0 MMOL/L (20-31); CHLORIDE LEVEL 106.0 MMOL/L (98-107); CHOLESTEROL LEVEL 139.0 MG/DL (<200); CHOLESTEROL RISK RATIO 4.64 (<5); CREATININE FOR GFR 1.22 MG/DL (0.70-1.30); GLOMERULAR FILTRATION RATE 65.8 (>49); LDL CHOLESTEROL 82.9 MG/DL (<100); NON-HDL-C 109.1 MG/DL; POTASSIUM SERUM 4.2 MMOL/L (3.5-5.1); SODIUM LEVEL 142.0 MMOL/L (136-145); TRIGLYCERIDES LEVEL 131.0 MG/DL (<150)
[2025-09-12 14:16] LABS: PLATELET COUNT, AUTOMATED 325 10^3/uL (150-450)
[2025-09-12 14:56] LABS: ESTIMATED AVERAGE GLUCOSE 189.0 MG/DL (60-110)
== END ==
LOC: M LABDRWAD 10:35
PROVIDERS: ATTEND Registered Nurse
DX: E11.65 Type 2 diabetes mellitus with hyperglycemia (principal); E78.00 Pure hypercholesterolemia, unspecified; I10 Essential (primary) hypertension; R94.5 Abnormal results of liver function studies